=== PATIENT | female | born 1965 | race Caucasian/White ===

== ENCOUNTER → 2017-10-29 18:31 | Outpatient (CLI) | payer OTHER, SELFPAY ==
[2017-11-03 13:49] LABS: HPV APTIMA, High Risk Negative (Negative)
== END ==
PROVIDERS: Visit Provider Obstetrics & Gynecology
DX: Z12.4 Encounter for screening for malignant neoplasm of cervix (principal)
CPT/HCPCS: 88175; G0145

== ENCOUNTER → 2018-01-14 06:57 | Outpatient (CLI) | payer OTHER, SELFPAY ==
--- NOTE | 2018-01-14 07:02 | BI_ITS ---
MAMMOGRAPHY - BILATERAL SCREENING REASON FOR EXAM: Female, 52 years old. Routine annual screening examination. PERTINENT HISTORY: Non-contributory. TECHNIQUE: Digital bilateral breast derek (3D mammographic acquisition) in the CC and MLO projections. 2-D mediolateral oblique (MLO) and craniocaudad (CC) views of both breasts were obtained. CAD: Full Field Digital Mammography with Computer Added Detection was performed. COMPARISON: Comparison is made with prior study dated January 07, 2017 and November 29, 2015. FINDINGS: Breast Composition: There are scattered areas of fibroglandular density. There are no dominant masses or suspicious calcifications. No other significant abnormalities are identified. There has been no significant change since the prior study. BI/SCREENING MAMM (CAD), BILAT IMPRESSION: Stable bilateral screening mammogram. Yearly follow-up mammogram recommended. (A) ASSESSMENT CATEGORY: BIRADS Category 1: Negative. A letter regarding these results will be sent to the patient by the facility within 30 days. Approximately 10% of breast cancers are not detected by mammography. A normal mammogram should not delay biopsy of a clinically suspicious abnormality. [id number] Electronically Signed: Luis E Wilson MD at 8:55 EDT Tel [phone], Service support ,
== END ==
PROVIDERS: Family Provider Family Medicine; PCP Family Medicine; Visit Provider Obstetrics & Gynecology
DX: Z12.31 Encounter for screening mammogram for malignant neoplasm of breast (principal)
CPT/HCPCS: 77063; 77067

== ENCOUNTER → 2018-11-09 17:46 | Outpatient (CLI) | payer OTHER, SELFPAY ==
[2017-08-25 10:58] VITALS: BMI 23.6
[2018-11-15 14:48] LABS: HPV APTIMA, High Risk Negative (Negative)
== END ==
PROVIDERS: Family Provider Family Medicine; PCP Family Medicine; Referring Provider Obstetrics & Gynecology; Visit Provider Obstetrics & Gynecology
DX: Z12.4 Encounter for screening for malignant neoplasm of cervix (principal)
CPT/HCPCS: 88175; G0145

== ENCOUNTER → 2018-12-16 16:36 | Outpatient (CLI) | payer OTHER, SELFPAY ==
[2017-08-25 10:58] VITALS: BMI 23.6
[2018-12-16 17:24] LABS: Absolute Lymphocyte Count 1.46 X10^3/ul (0.83-4.51); Basophil# 0.04 X10^3/uL; Basophil% 0.9 % (0-1); Eosinophil# 0.12 X10^3/uL; Eosinophils% 2.8 % (0-5); Hematocrit 38.7 % (37-47); Hemoglobin 12.4 g/dl (12.0-15.0); Lymphocyte # 1.46 X10^3/ul (4.0); Lymphocyte % 34.2 % (19-41); Mean Corpuscular Volume 90.6 fL (81-99); Mean Platelet Vol. 9.3 fl (6.2-12.0); Monocyte# 0.62 X10^3/uL; Monocyte% 14.5 % (0-10); Neutrophil # 2.03 X10^3/uL (2.7-7.7); Neutrophil % 47.6 % (47-70); Platelet Count 348 K/mm3 (150-450); RBC Distribution Width CV 12.3 % (11.6-14.6); RBC Distribution Width SD 40.3 fl (35.1-43.9); Red Blood Count 4.27 M/mm3 (4.2-5.4); White Blood Count 4.3 K/mm3 (4.4-11.0)
[2018-12-16 17:27] LABS: POSITIVE COUNT NO; POSITIVE DIFFERENTIAL NO; POSITIVE MORPHOLOGY NO
[2018-12-16 18:25] LABS: ALB/GLOB Ratio 1.5 RATIO (0.9-2.4); AST(SGOT) 17 U/L (15-37); Alanine Aminotransfer ALT/SGPT 19 U/L (13-56); Albumin, Serum 4.2 g/dL (3.2-5.0); Alkaline Phosphatase 66 U/L (45-117); Anion Gap 4 (5-15); BUN 16 mg/dL (7-18); BUN/Creat Ratio 26.2 RATIO (10-20); Calcium,Total 8.8 mg/dL (8.5-10.1); Chloride 103 mmol/L (98-107); Creatinine, Serum 0.61 mg/dL (0.55-1.02); EST Glomerular Filtration Rate 108 mL/min (>60); Est Glom Filt Rate - Afr Amer 130 mL/min (>60); Globulin 2.8 g/dL (2.2-4.2); Glucose 81 mg/dL (74-106); Potassium 4.2 mmol/L (3.5-5.1); Sodium Level 138 mmol/L (136-145); Thyroid Stim Hormone (TSH) 2.31 uIU/mL (0.358-3.74)
== END ==
PROVIDERS: Family Provider Family Medicine; PCP Family Medicine; Referring Provider Family Medicine; Visit Provider Family Medicine
DX: F32.9 Major depressive disorder, single episode, unspecified (principal)
CPT/HCPCS: 36415; 80053; 84443; 85025

== ENCOUNTER → 2019-01-16 07:15 | Outpatient (CLI) | payer OTHER, SELFPAY ==
--- NOTE | 2019-01-16 07:17 | BI_ITS ---
MAMMOGRAPHY - BILATERAL SCREENING REASON FOR EXAM: Female, 53 years old. Routine annual screening examination. PERTINENT HISTORY: Non-contributory. TECHNIQUE: Digital bilateral breast derek (3D mammographic acquisition) in the CC and MLO projections. 2-D mediolateral oblique (MLO) and craniocaudad (CC) views of both breasts were obtained. CAD: Full Field Digital Mammography with Computer Added Detection was performed. COMPARISON: Comparison is made with prior study dated January 14, 2018 and January 07, 2017. FINDINGS: Breast Composition: The breasts are heterogeneously dense, which may obscure small masses. There are no dominant masses or suspicious calcifications. No other significant abnormalities are identified. There has been no significant change since the prior study. BI/SCREENING MAMM (CAD), BILAT IMPRESSION: Stable bilateral screening mammogram. Yearly follow-up mammogram recommended. (A) ASSESSMENT CATEGORY: BIRADS Category 1: Negative. A letter regarding these results will be sent to the patient by the facility within 30 days. Approximately 10% of breast cancers are not detected by mammography. A normal mammogram should not delay biopsy of a clinically suspicious abnormality. [id number] Electronically Signed: Luis E Wilson, at 9:01 EDT , Service support ,
== END ==
PROVIDERS: Family Provider Family Medicine; PCP Family Medicine; Referring Provider Obstetrics & Gynecology; Visit Provider Obstetrics & Gynecology
DX: Z12.31 Encounter for screening mammogram for malignant neoplasm of breast (principal)
CPT/HCPCS: 77063; 77067

== ENCOUNTER → 2019-05-28 14:08 | Outpatient (CLI) | payer OTHER, SELFPAY ==
[2019-05-28 10:55] VITALS: BMI 23.6
== END ==
PROVIDERS: Family Provider Family Medicine; PCP Family Medicine; Visit Provider Physician Assistant Surgical
DX: J02.9 Acute pharyngitis, unspecified (principal)
CPT/HCPCS: 87070

== ENCOUNTER 2019-10-27 06:00 | Day surgery (SDC) | payer OTHER, SELFPAY ==
[2019-05-28 10:55] VITALS: BMI 23.6
[2019-10-27] VITALS (12 sets, daily range): BP systolic 87–128; BP diastolic 53–93; PULSE 62–112; RESP 14–16; TEMP 36.4–37; O2SAT 92–100; BMI 21.7
--- NOTE | 2019-10-27 06:14 | PCM.HP.STD ---
Problem List (1) Screening for intestinal cancer Status: Acute History of Present Illness Date of Admission: 10/27/19 The patient is a 54 year old F who presents for screening colonoscopy today. She has had a previous colonoscopy but remotely when she was in her 20s. She denies bright red blood per rectum or melena. No abdominal pain. No weight loss. She otherwise enjoys good health. No family history of colon cancer. Past Medical History Medical History: Medical History (Last Reviewed 05/28/19 @ 10:55 by Zayra Lee) SVT (supraventricular tachycardia) I47.1 Allergies No Known Allergies Allergy (Verified 10/23/19 10:13) Home Medications: Ambulatory Orders Medication Instructions Recorded Multivitamin [Daily Multiple 1 ea PO DAILY 10/23/19 Vitamin] Smoking Status: Never smoker Tobacco Use: Non-smoker Review of Systems Constitutional: Denies: Anorexia Cardiovascular: Denies: Chest Pain Respiratory: Denies: Cough Gastrointestinal: Denies: Abdominal Pain, Melena Endocrine: Denies: Change in Body Habitus VTE Information - Inpt Only VTE Present on Admission: No Patient Problems: Active and Suspected Problems (Last Reviewed 05/28/19 @ 10:55 by Zayra Lee) Screening for intestinal cancer (Acute) - Physical Exam Vitals/I&O's: Body Mass Index (BMI) 23.6 General: Alert, Oriented x3, Cooperative, No apparent distress HEENT: Atraumatic Oral: Moist Mucosa Neck: Supple Lungs: Clear to auscultation, Normal air movement Cardiovascular: Regular rate, Regular Rhythm Abdomen: Bowel Sounds Present, Soft, Non Tender Extremities: No Calf Tenderness Assessment/Plan All Active Problems (Last Reviewed 05/28/19 @ 10:55 by Zayra Lee) Screening for intestinal cancer (Acute) Bronchitis (Acute) URI (upper respiratory infection) (Acute) I recommended the patient a screening colonoscopy with possible biopsy or polypectomy is indicated. She is aware of the technique, benefit, risks, alternatives. She has had an opportunity to ask and have questions answered. She presents via our open access program today. We will proceed as noted. French Porter M.D., F.A.C.S.
[2019-10-27] MEDS: Lactated Ringers 1,000 ML 100 ML IV ×2 (06:36→07:58)
--- NOTE | 2019-10-27 07:17 | OP.COLON_ITS ---
Patient Name: Anneliese Delcid Procedure Date: 10/27/2019 6:50 AM Date of : 1965 Age: 54 Procedure: Colonoscopy Indications: Screening for colorectal malignant neoplasm Providers: French Porter MD Referring MD: French Porter MD Medicines: Midazolam 4.5 mg IV, Meperidine 100 mg IV, Diphenhydramine 12.5 mg IV Patient Profile: Last Colonoscopy: more than 10 years ago. Complications: No immediate complications. Procedure: Pre-Anesthesia Assessment: - Prior to the procedure, a History and Physical was performed, and patient medications and allergies were reviewed. The patient's tolerance of previous anesthesia was also reviewed. The risks and benefits of the procedure and the sedation options and risks were discussed with the patient. All questions were answered, and informed consent was obtained. Prior Anticoagulants: The patient has taken no previous anticoagulant or antiplatelet agents. ASA Grade Assessment: I - A normal, healthy patient. After reviewing the risks and benefits, the patient was deemed in satisfactory condition to undergo the procedure. After I obtained informed consent, the scope was passed under direct vision. Throughout the procedure, the patient's blood pressure, pulse, and oxygen saturations were monitored continuously. The pediatric colonoscope was introduced through the anus and advanced to the cecum, identified by appendiceal orifice and ileocecal valve. The colonoscopy was somewhat difficult due to a tortuous colon. Successful completion of the procedure was aided by increasing the dose of sedation medication. The patient tolerated the procedure well. The quality of the bowel preparation was good. The ileocecal valve and the appendiceal orifice were photographed. Moderate Sedation: Moderate (conscious) sedation was personally administered by the endoscopist. The following parameters were monitored: oxygen saturation, heart rate, blood pressure, and response to care. Total physician intraservice time was 15 minutes. Scope In: 6:58:39 AM Scope Withdrawal Time 0 hours 6 minutes 21 seconds Scope Out: 7:12:43 AM Total Procedure Duration Time 0 hours 14 minutes 4 seconds Findings: The digital rectal exam findings include non-thrombosed internal hemorrhoids and internal hemorrhoids that prolapse with straining, but spontaneously regress to the resting position (Grade II). The colon (entire examined portion) was moderately tortuous. Advancing the scope required changing the patient to a supine position and using manual pressure. The exam was otherwise without abnormality. Impression: - Non-thrombosed internal hemorrhoids and internal hemorrhoids that prolapse with straining, but spontaneously regress to the resting position (Grade II) found on digital rectal exam. - Tortuous colon. - The examination was otherwise normal. - No specimens collected. Recommendation: - Discharge patient to home. - Resume previous diet. - Continue present medications. - Await pathology results. - Repeat colonoscopy in 10 years for screening purposes. Procedure Code(s): --- Professional --- 62774, Colonoscopy, flexible; diagnostic, including collection of specimen(s) by brushing or washing, when performed (separate procedure) 33395, 59, Moderate sedation services provided by the same physician or other qualified health resident care director performing the diagnostic or therapeutic service that the sedation supports, requiring the presence of an independent trained observer to assist in the monitoring of the patient's level of consciousness and physiological status; initial 15 minutes of intraservice time, patient age 5 years or older Diagnosis Code(s): --- Professional --- Z12.11, Encounter for screening for malignant neoplasm of colon K64.1, Second degree hemorrhoids Q43.8, Other specified congenital malformations of intestine CPT copyright 2017 [employer]. All rights reserved. The codes documented in this report are preliminary and upon medical records coder review may be revised to meet current compliance requirements. French Porter MD 10/27/2019 7:16:53 AM This report has been signed electronically. Number of Addenda: 0 Note Initiated On: 10/27/2019 6:50 AM
--- NOTE | 2019-10-27 07:17 | OP.CCLET_ITS ---
10/27/2019 Andreina [address]ino [address] [place] [address] Re : Colonoscopy procedure for Anneliese Delcid Dear Dr. Trevino This procedure was performed on Sunday, October 27, 2019. My impressions and recommendations are as follows: Impressions : - Non-thrombosed internal hemorrhoids and internal hemorrhoids that prolapse with straining, but spontaneously regress to the resting position (Grade II) found on digital rectal exam. - Tortuous colon. - The examination was otherwise normal. - No specimens collected. Recommendations : - Discharge patient to home. - Resume previous diet. - Continue present medications. - Await pathology results. - Repeat colonoscopy in 10 years for screening purposes. My findings are described in the full procedure note, which is enclosed. If I can be of further assistance, please feel free to contact me at Doctor phone number(s): Work: . Sincerely, French Porter MD 10/27/2019 7:16:53 AM This report has been signed electronically.
== END 2019-10-27 09:05 | disposition home or self-care (01) ==
LOC: EN 06:01 → AC 06:06
PROVIDERS: PCP Family Medicine; Referring Provider Surgery; Visit Provider Surgery
PROC: 0DJD8ZZ Inspection of Lower Intestinal Tract, Via Natural or Artificial Opening Endoscopic (ICD-10-PCS; CPT 45378; principal; 2019-10-27 06:55)
DX: Z12.11 Encounter for screening for malignant neoplasm of colon (principal); K64.8 Other hemorrhoids; K64.1 Second degree hemorrhoids; Q43.8 Other specified congenital malformations of intestine
CPT/HCPCS: 45378; 99152; 99153; J7120

== ENCOUNTER → 2020-03-08 15:58 | Outpatient (CLI) | payer OTHER, SELFPAY ==
[2019-10-27 06:26] VITALS: BMI 21.7
[2020-03-14 01:51] LABS: HPV Reflexed? NOT INDICATED
== END ==
PROVIDERS: PCP Family Medicine; Visit Provider Obstetrics & Gynecology
DX: Z12.4 Encounter for screening for malignant neoplasm of cervix (principal)
CPT/HCPCS: 88175; G0145

== ENCOUNTER → 2020-03-28 07:00 | Outpatient (CLI) | payer OTHER, SELFPAY ==
[2019-10-27 06:26] VITALS: BMI 21.7
--- NOTE | 2020-03-28 07:03 | BI_ITS ---
MAMMOGRAPHY - BILATERAL SCREENING REASON FOR EXAM: Female, 54 years old. Routine annual screening examination. PERTINENT HISTORY: Non-contributory. TECHNIQUE: Digital bilateral breast ravinder (3D mammographic acquisition) in the CC and MLO projections. 2-D mediolateral oblique (MLO) and craniocaudad (CC) views of both breasts were obtained. CAD: Full Field Digital Mammography with Computer Added Detection was performed. COMPARISON: Comparison is made with prior study dated 01/16/2019 and 01/14/2018. FINDINGS: Breast Composition: The breasts are heterogeneously dense, which may obscure small masses. There are no dominant masses or suspicious calcifications. Stable small benign appearing left axillary lymph nodes. No other significant abnormalities are identified. There has been no significant change since the prior study. BI/SCREEN MAMM (CAD) W/RAVINDER BILAT IMPRESSION: Stable bilateral screening mammogram. Yearly follow-up mammogram recommended. (A) ASSESSMENT CATEGORY: BIRADS Category 2: Benign. A letter regarding these results will be sent to the patient by the facility within 30 days. Approximately 10% of breast cancers are not detected by mammography. A normal mammogram should not delay biopsy of a clinically suspicious abnormality. [id number] Electronically Signed: Luis E Wilson, at 8:34 EDT , Service support ,
== END ==
PROVIDERS: PCP Family Medicine; Referring Provider Obstetrics & Gynecology; Visit Provider Obstetrics & Gynecology
DX: Z12.31 Encounter for screening mammogram for malignant neoplasm of breast (principal)
CPT/HCPCS: 77063; 77067

== ENCOUNTER 2020-09-19 06:58 | Outpatient (RCR) | payer BC, SELFPAY ==
[2019-10-27 06:26] VITALS: BMI 21.7
--- NOTE | 2020-09-19 12:55 | HP.PTEVAL_ITS ---
Patient's Visit Information HEATHER HERNANDEZ is a 55 year old F referred to Physical Therapy by Dr. Andreina Trevino MD with a diagnosis of R forearm pain. Date of Evaluation: 09/19/20 Physical Therapist: Ad Childress DPT - Visit Plan Frequency: 2x /Week Duration: 4 Weeks Plan: Start with DFM to lateral epicondyle, stretching of wrist extensors, eccentric wrist extension. I also recommended to her that she get a counterforce brace to use at work and with recreational activities. - Subjective Pt. is here today for her initial evaluation with diagnosis of R forearm pain. Pt. 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 She reports no popping, but since then she has been pretty sore. Pt. denies N/T. Increased symptoms: gripping, lifting, carrying objects, wrist extension and opening jars. Decreased symptoms: ice/heat, biofreeze, stretching. She had triale stretching, but appears she was stretching her medial wrist flexors, but her pain is at her wrist extensors. 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 She is able to sleep, but depending on the day she may wake up at night to pain. Pt. has not had any imaging at this point in time. Pt. is hopeful to reduce symptoms in order to get back to all work and recreational activities without limitations. - Pain R wrist extensor origins Pain Intensity (Out of 10): 4 Pain Intensity Range: 2, 8 Comment: pain at lateral epicondyle - Objective POSTURE: Pt. has descent posture of shoulders and elbow, no abnormalities noted. PALPATION: pt. is very tender at lateral epicondyle and along wrist/finger extensor muscle groups. NEURO: normal sensation and normal DTR of BUEs. No signs of carpal or cubital tunnel. ROM: Pt. has good ROM of R elbow without increase in symptoms. tightness noted throughout R wrist extensors, mild pain noted as well. MMT: Pt. has increased pain with wrist extension and finger extension, worst with 3rd finger. Pt. has normal frit mixer and burner noted bilaterally. - Special Tests R Elbow Flexion Test - Cubital Tunnel: Negative R Elbow Tinels - Ulnar n.: Negative R Elbow Valgus Stress Test - MCL Instability: Negative R Elbow Varus Stress Stest - MCL Instability: Negative R Elbow Lat Epiconylitis - as named: Positive Comments: + florina and cojudi test on R elbow, postive for lateral epicondylitis - Goals Goal 1:: LTG: Pt. to be I with HEP. Goal Time Frame: 4-6 Weeks Goal 2:: LTG: pt. to be able to open/close jars without increase in symptoms. Goal Time Frame: 4-6 Weeks Goal 3:: STG: Pt. to sleep throughout the night without increase in symptoms. Goal Time Frame: 2-4 Weeks Goal 4:: LTG: Pt. to have increased Wrist/finger extensor strength to full without increase in symptoms. Goal Time Frame: 4-6 Weeks Goal 5:: LTG: pt. to have decreased tenderness to palpation of R lateral epicondyle. Goal Time Frame: 4-6 Weeks - Rehabilitation Potential Physical Therapy Diagnosis: Pt. has signs and symptoms consistent with R lateral epicondylitis. Pt. had + mill and conzen's test, pain at lateral epicondyle and has pain with griping and wrist extension. She would benefit from PT to work on her hypomobility, tightness, pain and work on tissue remodeling. Rehabilitation Potential: Excellent - Anticipated Interventions Patient/Client Instruction: Educate patient on: Condition, Plan of Care, Risk Factors, Benefits of Fitness Program For the Purpose of:: To facilitate caregiver knowledge, To improve self management, To prevent re-injury, To improve ability to perform tasks related to life management, To improve tolerance to ADL's Therapeutic Exercise to Include: Strength training, Power training, Postural training, Flexibilty training, Passive ROM, Active ROM, Scapular Strength/Stabilization For the Purpose of:: To decrease pain, To decrease swelling/inflammation, To increase ROM, To improve nutrient delivery to tissue, To increase oxygenation perfusion, To improve muscle performance and motor function, To improve health of tissue, To decrease soft tissue restriction, To increase flexibility/ROM Manual Therapy Techniques to Include: Mobilization Comment: deep friction massage For the Purpose of:: To decrease pain, To decrease swelling/inflammation, To increase ROM, To improve nutrient delivery to tissue Ultrasound (thermal/non thermal): Yes For the Purpose of:: To decrease pain, To decrease swelling/inflammation, To increase ROM, To improve nutrient delivery to tissue Thank you for the opportunity to evaluate your patient. For Medicare and Medicare HMO plans, please review the plan of care and approve it. It will need to be FAXED BACK to us at [phone] for Medicare purposes. For Medicare only, by signing this I certify the plan of care. Please let me know if there are questions or concerns regarding this plan of care. Physician Signature: Date:
--- NOTE | 2021-02-05 12:21 | HP.PTDCNRP_ITS ---
HEATHER HERNANDEZ was seen in my office for initial evaluation on 09/19/20. The following Plan of Care was established for this patient: Initial Frequency: 2x /Week Initial Duration: 4 Weeks Patient/Client Instruction: Educate patient on: Condition, Plan of Care, Risk Factors, Benefits of Fitness Program For the Purpose of:: To facilitate caregiver knowledge, To improve self management, To prevent re-injury, To improve ability to perform tasks related to life management, To improve tolerance to ADL's Therapeutic Exercise to Include: Strength training, Power training, Postural training, Flexibilty training, Passive ROM, Active ROM, Scapular Strength/St abilization For the Purpose of:: To decrease pain, To decrease swelling/inflammation, To increase ROM, To improve nutrient delivery to tissue, To increase oxygenation perfusion, To improve muscle performance and motor function, To improve health of tissue, To decrease soft tissue restriction, To increase flexibility/ROM Manual Therapy Techniques to Include: Mobilization Comment: deep friction massage For the Purpose of:: To decrease pain, To decrease swelling/inflammation, To increase ROM, To improve nutrient delivery to tissue Ultrasound (thermal/non thermal): Yes For the Purpose of:: To decrease pain, To decrease swelling/inflammation, To i ncrease ROM, To improve nutrient delivery to tissue This patient was last seen in our office 09/19/20. Pertinent comments regarding their Physical therapy will appear below: Pt. was seen for her initial evaluation with diagnosis of R forearm pain in PT. She has not been seen since. Pt. will be DC from PT at this point in time. At this point I will be discontinuing this patient from physical therapy. I would be happy to see this patient again in the future if found appropriate by the physician. Thank you! Ad Childress, SARAHT
== END 2020-09-19 19:00 | disposition home or self-care (01) ==
LOC: PT 06:58
PROVIDERS: PCP Family Medicine; Referring Provider Family Medicine; Visit Provider Family Medicine
DX: S56.911D Strain of unspecified muscles, fascia and tendons at forearm level, right arm, subsequent encounter (principal)
CPT/HCPCS: 97035; 97110; 97161

== ENCOUNTER → 2021-04-17 16:35 | Outpatient (CLI) | payer BC, SELFPAY ==
[2021-04-23 18:32] LABS: HPV APTIMA, High Risk Negative (Negative); HPV Reflexed? YES, CHARGE PATIENT
== END ==
PROVIDERS: PCP Family Medicine; Visit Provider Obstetrics & Gynecology
DX: Z12.4 Encounter for screening for malignant neoplasm of cervix (principal)
CPT/HCPCS: 87624; 88175; G0145

== ENCOUNTER → 2021-04-29 08:51 | Outpatient (CLI) | payer BC, SELFPAY ==
--- NOTE | 2021-04-29 08:54 | BI_ITS ---
MAMMOGRAPHY - BILATERAL DIAGNOSTIC REASON FOR EXAM: Female, 55 years old. LUMP PERTINENT HISTORY: Non-contributory. TECHNIQUE: Digital examination. Mediolateral oblique (MLO) and craniocaudad (CC) views of both breasts were obtained. CAD: CAD was performed on this study. COMPARISON: 03/28/2020 FINDINGS: Breast Composition: There are scattered areas of fibroglandular density. There are no dominant masses or suspicious calcifications. No other significant abnormalities are identified. BI/DIAG MAMM W/CAD, BILAT IMPRESSION: Stable bilateral diagnostic mammogram. ASSESSMENT CATEGORY: BIRADS Category 1: Negative. A letter regarding these results will be sent to the patient by the facility within 30 days. FOLLOW UP RECOMMENDATION: Yearly follow up mammogram recommended. (A) Approximately 10% of breast cancers are not detected by mammography. A normal mammogram should not delay biopsy of a clinically suspicious abnormality. Electronically Signed: Frank Suarez MD at 9:29 EDT Tel , Service support ,
== END ==
PROVIDERS: PCP Family Medicine; Referring Provider Obstetrics & Gynecology; Visit Provider Obstetrics & Gynecology
DX: N63.25 Unspecified lump in the left breast, overlapping quadrants (principal)
CPT/HCPCS: 77062; 77066; G0279

== ENCOUNTER → 2021-05-14 14:49 | Outpatient (CLI) | payer BC, SELFPAY ==
--- NOTE | 2021-05-14 14:50 | US_ITS ---
STUDY: ULTRASOUND BREAST - LEFT REASON FOR EXAM: Female, 55 years old. Palpable lump left breast. TECHNIQUE: Axial and longitudinal images of the LEFT breast were performed with a high resolution ultrasound transducer. # OF IMAGES: 17 COMPARISON: Comparison is made with prior mammogram dated 04/29/2021. FINDINGS: LEFT Breast: The lateral aspect of the left breast was examined by ultrasound. No sonographic abnormality is seen. US/Breast Limited Unilateral IMPRESSION: No sonographic abnormality is seen. ASSESSMENT CATEGORY: BIRADS Category 1: Negative. A letter regarding these results will be sent to the patient by the facility within 30 days. Electronically Signed: Luis E Wlison MD at 15:53 EDT , Service support ,
== END ==
PROVIDERS: PCP Family Medicine; Referring Provider Surgery; Visit Provider Surgery
DX: N63.0 Unspecified lump in unspecified breast (principal)
CPT/HCPCS: 76642

== ENCOUNTER 2021-07-02 11:45 | Emergency (ER) | payer BC, SELFPAY ==
[2021-07-02 11:46] VITALS: BP 143/80; PULSE 95; RESP 17; TEMP 36.4; O2SAT 100; BMI 22.1
--- NOTE | 2021-07-02 11:49 | EKG12_ITS ---
Test Reason : CP Blood Pressure : / mmHG Vent. Rate : 103 BPM Atrial Rate : 103 BPM P-R Int : 182 ms QRS Dur : 094 ms QT Int : 364 ms P-R-T Axes : 080 081 052 degrees QTc Int : 476 ms Sinus tachycardia Biatrial enlargement Abnormal ECG Confirmed by DEION COOK, JESSICA ([id number]), desk editor DERIAN SERRATO ([id number]) on 07/07/2021 9:59:55 AM Referred By: SANTOS Confirmed By:AZIZA ALBARRAN MD
[2021-07-02 11:51] VITALS: O2SAT 100
--- NOTE | 2021-07-02 11:54 | RAD_ITS ---
STUDY: X-RAY CHEST REASON FOR EXAM: Female, 56 years old. Chest pain TECHNIQUE: Single AP portable view of the chest. COMPARISON: None. FINDINGS: EKG electrodes are seen. The lungs are clear and expanded. Calcified granulomas. There is no demonstrated pleural abnormality. Normal size heart. Normal mediastinum and geoff. Normal visualized pulmonary arteries. Normal visualized aortic arch and descending thoracic aorta. Normal visualized thoracic spine. Normal visualized ribs, clavicles, and shoulders. There is no demonstrated abnormality of the visualized soft tissue structures of the upper abdomen. RAD/Chest 1 View (Portable) IMPRESSION: Normal x-ray examination of the chest. Electronically Signed: Luis E Wilson MD at 12:22 EDT , Service support ,
[2021-07-02] MEDS: Aspirin 81 MG TAB.CHEW 324 MG PO (11:55)
--- NOTE | 2021-07-02 12:02 | ED.VIS.CHEST ---
HPI History of Present Illness Chief Complaint: Chest Pain Informant: patient Onset/Context/Timing Onset: Today Activity at onset: gradual Timing: Continuous Quality: Positive for Heaviness Location: Substernal Current Severity: Mild Maximum Severity: Mild Worsened By: Nothing Relieved By: Nothing Associated Symptoms: Positive for Nausea; Negative for Vomiting, Diaphoresis, Dyspnea, Cough, Fever, Lightheadedness and Acid Reflux Narrative Narrative: 56-year-old female history of a prior SVT with an ablation. She had cardiac catheterization cardiac work-up at that time in 2009. States that last couple days she has not felt completely normal. Said today while seated at work she had a midsternal chest discomfort which she described as heaviness. It did not radiate to her neck back or jaw. She states it felt like a twisting. She denies any back pain. She denies any recent exertional chest pain or exertional dyspnea. Prior Similar Symptoms: No Recent Illness/Hospitalization: No CVD Risk Factors: Negative for Hypertension, Diabetes, Hypercholesterolemia, Family History 1' </=55 and Smoking PE Risk Factors: Negative for Recent Travel/Surgery, Recent Immobilization, Prior DVT or PE, Cancer and OCP + Smoking + >/=35 TAD Risk Factors: Negative for Marfan's Syndrome and Hypertension [facility] Medical History Palpable mass of breast SVT (supraventricular tachycardia) Home Medications multivitamin 1 ea PO DAILY 10/23/19 [History Last Taken Unknown] Allergy/AdvReac Type Severity Reaction Status Date / Time No Known Allergies Allergy Verified 07/02/21 11:51 Family History Other Arthritis Surgical History History of cardiac radiofrequency ablation Social History Smoking Status: Never smoker alcohol intake: current alcohol intake frequency: holidays/special occasions only Alcohol type: wine what type of physical activity do you participate in: walking frequency: 1-2 times per week duration: 15-30 minutes/day ROS ROS ED ROS Narrative Denies any recent illness. Review of Systems ROS Unobtainable: Denies due to encephalopathy Constitutional Constitutional ED: Denies fever(s) Eyes Eyes: Denies none ENT ENT ED: Denies ear pain Cardiovascular Cardiovascular: Reports as per HPI and chest pain; Denies palpitations or racing heartbeat Respiratory/Chest Respiratory/Chest: Denies cough, dyspnea or sputum Gastrointestinal Gastrointestinal: Reports nausea; Denies abdominal pain, diarrhea or vomiting Genitourinary Genitourinary ED: Denies dysuria Musculoskeletal Musculoskeletal: Denies myalgias Integumentary Denies rash Neurologic Neurologic: Denies headache(s) Psychiatric Psychiatric: Denies depression Endocrine Endocrinology: Denies polyuria Hematologic/Lymphatic Hematologic/Lymphatic: Denies easy bruising Allergic/Immunologic Allergic/Immunologic ED: Denies urticaria EXAM Physical Exam Narrative Exam Narrative: Lower extrema no acute distress vital signs stable afebrile. Pulse ox 100% on room air no signs hypoxia. H EENT exam unremarkable. Neck nontender no JVD. Lungs clear to auscultation bilaterally. Heart regular rate and rhythm no murmur. Chest were nontender. Abdomen soft nontender. Normal bowel sounds no peritoneal signs. Moving all 4 extremities. Calves are nontender without edema or cords. Equal symmetrical radial pulses. Const Vital Signs: 07/02/21 11:46 07/02/21 11:48 07/02/21 11:51 Temperature 97.6 F L Temperature Source Temporal Pulse Rate 95 Respiratory Rate 17 Respiratory Effort Normal Non-Labored Blood Pressure 143/80 H Blood Pressure Mean 101 Pulse Ox 100 100 Oxygen Delivery Method Room Air Room Air 07/02/21 13:02 07/02/21 14:21 07/02/21 15:09 Temperature Temperature Source Pulse Rate 82 69 85 Respiratory Rate 18 16 Respiratory Effort Blood Pressure 122/69 H 129/69 H Blood Pressure Mean 86 89 Pulse Ox 100 100 Oxygen Delivery Method Room Air Positive well nourished and well developed; Negative for obese, cachectic, contractures or unkempt General Appearance ED: well developed and NAD; Negative for unkempt, cachectic, contractures or pallor Nutritional Appearance: Negative for cachectic or obese HEENT Reports moist mucous membranes normocephalic and atraumatic; Negative for trauma or tenderness Eyes PERRL and EOMs intact bilaterally Neck no lymphadenopathy, supple and no JVD General: Negative for tenderness Chest Wall inspection of chest normal and palpation of chest normal Resp normal respiratory effort and clear to auscultation bilaterally Effort and Inspection: respiratory distress Auscultation: Negative for rales, rhonchi or wheezes Cardio regular rate, regular rhythm, S1 normal heart sound, S2 normal heart sound and no murmurs Rate: Negative for bradycardia or tachycardic GI normal to inspection, nondistended, normoactive bowel sounds, soft to palpation, non-tender, non-distended and no masses Back/Spine no CVA tenderness and no thoracic nor lumbar tenderness General Back: Negative for CVA tenderness Extremity normal to inspection General Extremety ED: Negative for edema or tenderness General Extremity: Negative for edema Neuro oriented x3 and CN's II-XII intact bilaterally Sensorium / Orientation: awake, alert, oriented to person, oriented to place and oriented to time Motor Exam: strength 5/5 throughout Psych mental status grossly normal Appearance: Negative for unkempt Mood & Affect: Negative for depressed or tearful Skin no rashes or lesions noted and no wounds General Skin Exam: Negative for jaundice or pallor Heart Score History: Moderately Suspicious ECG: Normal Age: >45 - <65 years Risk Factors: No Risk Factors Troponin: </= Normal Limit Score: 2 MDM MDM MDM Narrative Medical decision making narrative: 56-year-old with nonexertional chest pain at rest. Exam normal. EKG unremarkable. Will undergo a cardiac work-up. Cardiac disease is a possibility. Very low suspicion for PE she has no history of PE nor DVT no risk factors. This could also be reflux versus other etiologies. Repeat exam patient is doing well at 2:48 PM. Exam is benign. No change she is clinically doing well. She denies discussed all of her test results. We discussed options. Her heart score is a 1-2. Her exam and work-up is negative. We get a repeat troponin EKG. If those are okay she will be discharged home. The repeat troponin be checked out to the afternoon doctor. I will speak to her primary care physician or the physician covering for outpatient follow-up. Repeat EKG at 1458 shows a normal sinus rhythm rate of 78 no acute signs of AZ nor ischemia. Unchanged. I did speak to the patient's primary care physician who will see her in follow-up. Dr. Andreina Dave. Second troponin returned was only 5. Second EKG was also unremarkable and unchanged. She is doing well at 3:28 PM will be discharged home. Lab Data Attestation: I reviewed the patient's lab results. Lab results narrative: CBC normal white count of 5 hemoglobin 13. Electrolytes potassium 3.2 gap of 5 normal BUN and creatinine. High-sensitivity troponin IV. Chest x-ray normal. Normal cardiac silhouette and mediastinum no infiltrates. Interpreted by myself and the radiologist. Labs: Laboratory Results - last 24 hr 07/02/21 07/02/21 07/02/21 11:50 11:50 14:53 WBC 5.7 RBC 4.67 Hgb 13.6 Hct 42.5 MCV 91.0 MCH 29.1 MCHC 32.0 RDW Std Deviation 39.8 RDW Coeff of Teja 11.9 Plt Count 414 MPV 9.0 Immature Gran % (Auto) 0.200 Neut % (Auto) 52.3 Lymph % (Auto) 31.6 [place] % (Auto) 11.2 H Eos % (Auto) 3.3 Baso % (Auto) 1.4 H Absolute Neuts (auto) 3.0 Absolute Lymphs (auto) 1.81 Nucleated RBC % 0 Sodium 137 Potassium 3.2 L Chloride 103 Carbon Dioxide 29.0 Anion Gap 5 BUN 10 Creatinine 0.73 Estim Creat Clear Calc 69.49 Est GFR (MDRD) Af Amer 105 Est GFR (MDRD) Non-Af 87 BUN/Creatinine Ratio 13.7 Glucose 100 Calcium 9.4 Troponin I High Sens 4 5 Radiography Chest X-Ray - ED: 1 View, Read by ED Physician, Heart, Lungs, Mediastinum, Bony Structures and No Acute Disease Diagnostic Testing: Clinical Impression(s) from Imaging Studies Chest X-Ray 07/02/21 11:54 IMPRESSION: Normal x-ray examination of the chest. Electronically Signed: Luis E Wilson MD at 12:22 EDT , Service support , Single view portable chest x-ray interpreted by myself and radiologist shows no acute abnormality. Rhythm Strip Rhythm Strip: Sinus Tach Rate: 103 Ectopy: None EKG Initial EKG: Attestation: I personally reviewed and interpreted this EKG as follows: Interpretation: Sinus Rhythm, No Acute Injury Pattern and Sinus Tachycardia Comments: Sinus tachycardia rate of 103. No acute signs of [place] or ischemia. Prior EKG tracings: not available for review Discharge Plan Triage Chief Complaint: Chest Pain ED Provider: Aristides Salgado Dx/Rx/DC Orders Clinical Impression: Chest pain Instructions: ED Chest Pain, Uncertain Cause Prescriptions: No Action multivitamin 1 EACH tablet 1 ea PO DAILY RF: 0 Primary Care Provider: Andreina Trevino Referrals: Andreina Trevino MD [Primary Care Provider] - 3-5 Days Activity Restrictions/Additional Instructions: Your test today were unremarkable including 2 EKGs, chest x-ray and lab work. I spoke to your primary care physician Dr. Andreina Trevino she said call her office and follow-up in the next 3 to 5 days. If you have recurrent pain that is significantly worse or you are feeling worse return to the emergency department. Disposition Disposition: Home, Self Care
[2021-07-02 12:07] LABS: Absolute Lymphocyte Count 1.81 X10^3/uL (0.83-4.51); Basophil# 0.08 X10^3/uL; Basophil% 1.4 % (0-1); Eosinophil# 0.19 X10^3/uL; Eosinophils% 3.3 % (0-5); Hematocrit 42.5 % (37-47); Hemoglobin 13.6 g/dL (12.0-15.0); Lymphocyte # 1.81 X10^3/ul (0.83-4.51); Lymphocyte % 31.6 % (19-41); Mean Corpuscular Hgb 29.1 pg (27.0-32.0); Monocyte# 0.64 X10^3/uL; Monocyte% 11.2 % (0-10); NRBC Flagged by Analyzer 0 % (0-5); Neutrophil # 2.99 X10^3/uL (2.7-7.7); Neutrophil % 52.3 % (47-70); Platelet Count 414 K/mm3 (150-450); RBC Distribution Width CV 11.9 % (11.6-14.6); RBC Distribution Width SD 39.8 fl (35.1-43.9); Red Blood Count 4.67 M/mm3 (4.2-5.4); White Blood Count 5.7 K/mm3 (4.4-11.0)
[2021-07-02 12:25] LABS: Anion Gap 5 (5-15); BUN 10 mg/dL (7-18); BUN/Creat Ratio 13.7 RATIO (10-20); Calcium,Total 9.4 mg/dL (8.5-10.1); Chloride 103 mmol/L (98-107); Creatinine, Serum 0.73 mg/dL (0.55-1.02); EST Glomerular Filtration Rate 87 mL/min (>60); Est Glom Filt Rate - Afr Amer 105 mL/min (>60); Estimated Creatinine Clearance 69.49 ml/min; Glucose 100 mg/dL (74-106); Potassium 3.2 mmol/L (3.5-5.1); Sodium Level 137 mmol/L (136-145); Troponin-I HS 4 pg/mL (3.0-54.0)
[2021-07-02 13:02] VITALS: BP 122/69; PULSE 82; RESP 18; O2SAT 100
[2021-07-02 14:21] VITALS: BP 129/69; PULSE 69; O2SAT 100
--- NOTE | 2021-07-02 14:48 | EKG12_ITS ---
Test Reason : REPEAT Blood Pressure : / mmHG Vent. Rate : 078 BPM Atrial Rate : 078 BPM P-R Int : 182 ms QRS Dur : 090 ms QT Int : 382 ms P-R-T Axes : 071 054 033 degrees QTc Int : 435 ms Normal sinus rhythm Normal ECG Confirmed by DEION COOK, JESSICA ([id number]), multimedia editor DERIAN SERRATO ([id number]) on 07/07/2021 10:00:20 A M Referred By: SANTOS Confirmed By:AZIZA ALBARRAN MD
[2021-07-02 15:09] VITALS: PULSE 85; RESP 16
[2021-07-02 15:21] LABS: Troponin-I HS 5 pg/mL (3.0-54.0)
[2021-07-02 15:31] VITALS: PULSE 88; RESP 16
== END 2021-07-02 15:36 | disposition home or self-care (01) ==
PROVIDERS: Emergency Provider Emergency Medicine; PCP Family Medicine
DX: R07.9 Chest pain, unspecified (principal)
CPT/HCPCS: 71045; 80048; 84484; 85025; 93005; 99284; A4216

== ENCOUNTER 2022-06-29 08:34 | Emergency (ER) | payer BC, SELFPAY ==
[2022-06-29 08:35] VITALS: BP 136/72; PULSE 97; RESP 18; TEMP 36; O2SAT 100; BMI 21.7
--- NOTE | 2022-06-29 09:05 | RAD_ITS ---
STUDY: X-RAY - LUMBAR SPINE REASON FOR EXAM: Female, 57 years old. Left sciatica TECHNIQUE: 2 view(s) of the lumbar spine were obtained. COMPARISON: None FINDINGS: There is straightening of the normal lumbar lordosis. There is no substantial scoliosis. There is a normal alignment of the vertebrae. There is endplate spondylosis of the lumbar vertebrae. Normal disc space heights. The soft tissue structures are unremarkable. RAD/Lumbar Spine 2 or 3 Views IMPRESSION: Degenerative changes of the spine, as detailed above. Straightening of the normal lumbar lordosis. Electronically Signed: Luis E Wilson MD at 9:39 EDT ,
--- NOTE | 2022-06-29 09:06 | EDS_ITS ---
HPI History of Present Illness Chief Complaint: Lower Extremity Injury Informant: patient Narrative Narrative: Presents here with family for evaluation of progressive left-sided leg pain. Reports a week ago outside when dog was on the leash, ran she jumped over the leash, she does not fall. She is doing fine Wednesday noticed some discomfort left outer thigh left side. Wednesday she reported using the riding lawnmower did some mulching increasing pain. Symptoms would go down to her lateral lower leg. Symptoms worse with sitting and movement. No history of similar. Called PCP office on Wednesday they were booked. She was told to go to urgent care or ER. Wednesday [facility] she is prescribed a prednisone taper and started on muscle relaxer. Symptoms not improving. Adding ibuprofen 600 mg. We will continue discomfort presents to the ED today. Having difficulty walking. She has access to a walker at home for use. Denies any allergies. Denies any loss of bowel or bladder control. Denies history of similar. Prior similar symptoms: No PFSH PFSH Medical History Palpable mass of breast SVT (supraventricular tachycardia) Home Medications multivitamin 1 ea PO DAILY 10/23/19 [History Last Taken Unknown] ofloxacin 0.3 % eye drops See Rx Instructions ophthalmic (eye) .COMPLEX #5 mL 02/08/22 [Rx Last Taken Unknown] metaxalone 800 mg tablet 800 mg PO TID PRN muscle pain #10 tabs 06/27/22 [Rx Last Taken Unknown] prednisone 10 mg tablet 10 mg PO .COMPLEX #40 tabs 06/27/22 [Rx Last Taken Unknown] diazepam 5 mg tablet 5 mg PO Q8 PRN Muscle Spasm #12 tabs 06/29/22 [Rx Last Taken Unknown] gabapentin 300 mg capsule 300 mg PO QHS #30 caps 06/29/22 [Rx Last Taken Unknown] oxycodone-acetaminophen 5 mg-325 mg tablet (Percocet) 1 tab PO Q6H PRN pain 3 days #12 tabs 06/29/22 [Rx Last Taken Unknown] Allergy/AdvReac Type Severity Reaction Status Date / Time No Known Allergies Allergy Verified 07/02/21 11:51 Family History Other Arthritis Surgical History History of cardiac radiofrequency ablation Social History Smoking Status: Never smoker alcohol intake: current alcohol intake frequency: holidays/special occasions only Alcohol type: wine what type of physical activity do you participate in: walking frequency: 1-2 times per week duration: 15-30 minutes/day ROS ROS ED Constitutional Constitutional ED: Denies chills, fever(s) or sweats Eyes Eyes: Denies change in vision ENT ENT ED: Denies dysphagia or sore throat Cardiovascular Cardiovascular: Denies chest pain, leg edema, palpitations or racing heartbeat Respiratory/Chest Respiratory/Chest: Denies cough, dyspnea or dyspnea on exertion Gastrointestinal Gastrointestinal: Denies abdominal pain, diarrhea, nausea or vomiting Genitourinary Genitourinary ED: Denies dysuria, hematuria or urinary frequency Musculoskeletal Musculoskeletal: Reports extremity pain; Denies back pain or neck pain Integumentary Denies rash or wounds Neurologic Neurologic: Denies headache(s), paresthesias or weakness EXAM Physical Exam Const Vital Signs: 06/29/22 08:35 06/29/22 12:32 Temperature 96.8 F L Temperature Source Temporal Pulse Rate 97 Respiratory Rate 18 18 Blood Pressure 136/72 H Blood Pressure Mean 93 Pulse Ox 100 99 Oxygen Delivery Method Room Air Room Air Positive well nourished and well developed Constitutional Narrative: Uncomfortable, nontoxic General Appearance ED: well developed HEENT Reports moist mucous membranes normocephalic and atraumatic Eyes PERRL, EOMs intact bilaterally and conjunctivae normal General Eye ED: Yes normal appearance of both eyes Neck no lymphadenopathy and supple General: Negative for tenderness Chest Wall Chest: Negative for tenderness Resp normal respiratory effort and normal air movement Effort and Inspection: symmetric chest movement; Negative for respiratory distress Cardio regular rate, regular rhythm and no murmurs Peripheral Pulses: pulses 2+ throughout GI normal to inspection, nondistended, normoactive bowel sounds and non-tender Palpation: Negative for guarding or rebound tenderness present Back/Spine no CVA tenderness and no thoracic nor lumbar tenderness Back/Spine Narrative: No midline tenderness, no paralumbar tenderness. Straight leg test left side elicit discomfort lateral thigh. Is 1+ patellar reflex on the left, 3+ on the right. Extremity normal to inspection General Extremety ED: Negative for edema or tenderness General Extremity: Negative for edema Neuro oriented x3 and no sensory deficits noted Neuro Narrative: Strength left hip flexor 4 out of 5 compared to the right. Dorsi plantar flexors 5 out of 5 symmetric. Neurovascular intact distally. Sensorium / Orientation: awake and alert Skin no rashes or lesions noted and no wounds MDM MDM MDM Narrative Medical decision making narrative: Patient history exam concerns for sciatica however radicular pain symptoms left side more concerning for L5?S1 involvement. She has decreased reflex on the left side more consistent with a peripheral nerve impingement. She has no cauda equina symptoms. Discussed with patient family, no emergent indication for MRI studies at this time. She does have symptoms, I discussed, symptomatic control. Will obtain x-ray lumbar spine to help streamline process of management. Patient be started on gabapentin. She will continue her prescription medica tions and NSAIDs. 2 view x-ray lumbar spine reviewed myself and read by radiology mild degenerative changes noted. Interim was uncomfortable requesting pain medicine she is given IM morphine. There is no improvement. She reports spasms given p.o. Valium. She was monitored much more comfortable. She is able to ambulate with a walker with nursing reporting walking. She will stop her other muscle relaxer will use Valium. She continue her NSAIDs, prednisone. Additional prescription for oxycodone use as needed. She is given follow-up with pain management and her PCP for further outpatient management. All questions were answered. Radiography Diagnostic Testing: Clinical Impression(s) from Imaging Studies Lumbar Spine X-Ray 06/29/22 09:05 IMPRESSION: Degenerative changes of the spine, as detailed above. Straightening of the normal lumbar lordosis. Electronically Signed: Luis E Wilson MD at 9:39 EDT , Discharge Plan Triage Chief Complaint: Lower Extremity Injury ED Provider: Corby Kerr Dx/Rx/DC Orders Clinical Impression: Sciatica of left side, Leg muscle spasm Instructions: ED Sciatica Prescriptions: New oxycodone-acetaminophen [Percocet] 5-325 mg tablet 1 tab PO Q6H PRN (Reason: pain) 3 Days Qty: 12 0RF diazepam [diazepam] 5 mg tablet 5 mg PO Q8 PRN (Reason: Muscle Spasm) Qty: 12 0RF gabapentin 300 mg capsule 300 mg PO QHS Qty: 30 0RF No Action ofloxacin 0.3 % drops See Rx Instructions ophthalmic (eye) .COMPLEX Qty: 5 0RF Rx Instructions: put 1-2 drps into affected eye(s) every 2-4 h x 2 days, then 1-2 drps 4 times/day days 3-7 ophthalmic (eye) prednisone 10 mg tablet 10 mg PO .COMPLEX Qty: 40 0RF Rx Instructions: Take 4 pills for 4 days, 3 pills for 4 days, 2 pills for 4 days, take 1 pill for 4 days metaxalone 800 mg tablet 800 mg PO TID PRN (Reason: muscle pain) Qty: 10 0RF Rx Instructions: 1/2 to 1 pill for pain multivitamin 1 EACH tablet 1 ea PO DAILY Primary Care Provider: Andreina Trevino Referrals: Andreina Trevino MD [Primary Care Provider] - 1 Day Joesph Reddy DO [Non-Staff] - 3-5 Days Activity Restrictions/Additional Instructions: Continue your prednisone. Stop metaxalone. Start Valium as needed. Percocet as needed. Start gabapentin. Concerning nerve impingement L5-S1 left side. Usual walker for stability follow-up with your doctor for therapy follow-up with Dr. Reddy for treatment options. Disposition Disposition: Home, Self Care Discharge Date/Time: 06/29/22 13:15
[2022-06-29] MEDS: Gabapentin 300 MG Capsule PO (10:08)
[2022-06-29] MEDS: Morphine 4 MG/ML Syringe IM (10:09)
[2022-06-29] MEDS: diazePAM 5 MG Tablet PO (11:04)
[2022-06-29 12:32] VITALS: RESP 18; O2SAT 99
== END 2022-06-29 13:15 | disposition home or self-care (01) ==
PROVIDERS: Emergency Provider Emergency Medicine; PCP Family Medicine; Visit Provider Emergency Medicine
DX: M54.32 Sciatica, left side (principal); M62.838 Other muscle spasm
CPT/HCPCS: 72100; 96372; 99283

== ENCOUNTER → 2022-07-01 | Outpatient (CLI) | payer BC, SELFPAY ==
--- NOTE | 2022-07-01 17:01 | RAD_ITS ---
STUDY: X-RAY - PELVIS AND LEFT HIP REASON FOR EXAM: Female, 57 years old. Left-sided pain. TECHNIQUE: 3 views of the pelvis and hip. COMPARISON: None. FINDINGS: There is a non-specific bowel gas pattern. Normal visualized soft tissue structures. Normal bilateral iliac wings, sacroiliac joints and visualized sacrum. Normal bilateral superior and inferior pubic rami. Normal pubic symphysis. Normal bilateral ischial tuberosities. Normal visualized femoral head. Normal acetabulum. Normal hip joint. RAD/HIP, UNI W/ Pelvis 2-3 Views IMPRESSION: Normal x-ray examination of the pelvis and hip. Electronically Signed: Scott Valenzuela, at 10:13 EDT ,
--- NOTE | 2022-07-01 17:01 | RAD_ITS ---
STUDY: X-RAY - LEFT TIBIA AND FIBULA REASON FOR EXAM: Female, 57 years old. Left leg pain. TECHNIQUE: 2 view(s) of the tibia and fibula were obtained. COMPARISON: None. FINDINGS: Normal visualized tibia. Normal visualized fibula. The soft tissue structures are unremarkable. RAD/Tibia & Fibula 2 Views IMPRESSION: Normal x-ray examination of the tibia and fibula. Electronically Signed: Scott Valenzuela, at 10:12 EDT ,
== END | disposition home or self-care (01) ==
LOC: MTRAD 17:00
PROVIDERS: PCP Family Medicine; Referring Provider Family Medicine; Visit Provider Family Medicine
DX: M25.552 Pain in left hip (principal); M79.605 Pain in left leg
CPT/HCPCS: 73502; 73590

== ENCOUNTER → 2022-08-25 | Outpatient (CLI) | payer BC, SELFPAY ==
--- NOTE | 2022-08-25 12:48 | RAD_ITS ---
STUDY: X-RAY CHEST REASON FOR EXAM: Female, 57 years old. Influenza. TECHNIQUE: Frontal and lateral views of the chest. COMPARISON: July 02, 2021. FINDINGS: The lungs are clear and expanded. Stable scattered healed granulomatous calcifications. There is no demonstrated pleural abnormality. Normal size heart. Normal mediastinum and geoff. Normal visualized pulmonary arteries. Normal visualized aortic arch and descending thoracic aorta. Normal visualized thoracic spine. Normal visualized ribs, clavicles, and shoulders. Minimal pectus excavatum defect. There is no demonstrated abnormality of the visualized soft tissue structures of the upper abdomen. RAD/Chest PA and Lateral IMPRESSION: No interval change and no active or acute cardiopulmonary disease. Electronically Signed: Scott Valenzuela, at 13:11 [facility] ,
== END | disposition home or self-care (01) ==
LOC: MTRAD 12:39
PROVIDERS: PCP Family Medicine; Referring Provider Family Medicine; Visit Provider Family Medicine
DX: J11.1 Influenza due to unidentified influenza virus with other respiratory manifestations (principal)
CPT/HCPCS: 71046

== ENCOUNTER → 2023-03-01 | Outpatient (CLI) | payer BC, SELFPAY ==
--- NOTE | 2023-03-01 14:05 | BI_ITS ---
MAMMOGRAPHY - BILATERAL SCREENING REASON FOR EXAM: Female, 57 years old. Routine annual screening examination. PERTINENT HISTORY: Non-contributory. TECHNIQUE: Digital bilateral breast ravinder (3D mammographic acquisition) in the CC and MLO projections. 2-D mediolateral oblique (MLO) and craniocaudad (CC) views of both breasts were obtained. CAD: Full Field Digital Mammography with Computer Added Detection was performed. COMPARISON: Comparison is made with prior study April 29, 2021 and March 28, 2020. FINDINGS: Breast Composition: There are scattered areas of fibroglandular density. There are no dominant masses or suspicious calcifications. No other significant abnormalities are identified. There has been no significant change since the prior study. BI/SCRN MAMM (CAD)W/RAVINDER BILAT IMPRESSION: Stable bilateral screening mammogram. Yearly follow-up mammogram recommended. (A) ASSESSMENT CATEGORY: BIRADS Category 1: Negative. A letter regarding these results will be sent to the patient by the facility within 30 days. Approximately 10% of breast cancers are not detected by mammography. A normal mammogram should not delay biopsy of a clinically suspicious abnormality. [id number] Electronically Signed: Luis E Wilson MD at 14:48 EDT ,
== END | disposition home or self-care (01) ==
LOC: OPBI 14:03
PROVIDERS: PCP Family Medicine; Referring Provider Obstetrics & Gynecology; Visit Provider Obstetrics & Gynecology
DX: Z12.31 Encounter for screening mammogram for malignant neoplasm of breast (principal)
CPT/HCPCS: 77063; 77067

== ENCOUNTER → 2024-04-14 | Outpatient (CLI) | payer BC, SELFPAY ==
--- NOTE | 2024-04-14 07:52 | BI_ITS ---
MAMMOGRAPHY - BILATERAL SCREENING REASON FOR EXAM: Female, 58 years old. Routine annual screening examination. PERTINENT HISTORY: Non-contributory. TECHNIQUE: Digital bilateral breast ravinder (3D mammographic acquisition) in the CC and MLO projections. 2-D mediolateral oblique (MLO) and craniocaudad (CC) views of both breasts were obtained. CAD: Full Field Digital Mammography with Computer Added Detection was performed. COMPARISON: Comparison is made with prior study dated March 01, 2023 and April 29, 2021. FINDINGS: Breast Composition: The breasts are heterogeneously dense, which may obscure small masses. There are no dominant masses or suspicious calcifications. No other significant abnormalities are identified. There has been no significant change since the prior study. BI/SCRN MAMM (CAD)W/RAVINDER BILAT IMPRESSION: Stable bilateral screening mammogram. Yearly follow-up mammogram recommended. (A) ASSESSMENT CATEGORY: BIRADS Category 1: Negative. A letter regarding these results will be sent to the patient by the facility within 30 days. Approximately 10% of breast cancers are not detected by mammography. A normal mammogram should not delay biopsy of a clinically suspicious abnormality. [id number] Electronically Signed: Luis E Wilson MD at 9:05 EDT ,
== END | disposition home or self-care (01) ==
LOC: OPBI 07:51
PROVIDERS: PCP Family Medicine
DX: Z12.31 Encounter for screening mammogram for malignant neoplasm of breast (principal)
CPT/HCPCS: 77063; 77067

== ENCOUNTER → 2024-09-15 | Outpatient (CLI) | payer BC, SELFPAY ==
[2024-09-15 11:25] LABS: Anion Gap 6 (5-15); BUN 18 mg/dL (7-18); BUN/Creat Ratio 26.6 RATIO (10-20); Calcium,Total 9.2 mg/dL (8.5-10.1); Chloride 105 mmol/L (98-107); Cholesterol 229 mg/dL (200); Creatinine, Serum 0.68 mg/dL (0.55-1.02); EST Glomerular Filtration Rate 94 mL/min (>60); Est Glom Filt Rate - Afr Amer 114 mL/min (>60); Glucose 98 mg/dL (74-106); High Density Lipoprotein 105 mg/dL; Potassium 3.9 mmol/L (3.5-5.1); Sodium Level 140 mmol/L (136-145); Triglycerides 55 mg/dL; Very Low Density Lipoprotein 11 mg/dL (5-40)
== END | disposition home or self-care (01) ==
LOC: MFPLAB 09:06
PROVIDERS: PCP Family Medicine; Visit Provider Family Medicine
DX: Z00.00 Encounter for general adult medical examination without abnormal findings (principal)

== ENCOUNTER → 2025-05-03 | Outpatient (CLI) | payer BC, SELFPAY ==
--- NOTE | 2025-05-03 16:24 | BI_ITS ---
EXAM: SCRN MAMM (CAD)W/RAVINDER BILAT DATE: 05/03/2025 CLINICAL HISTORY: F, Age 59 y/o , SCREENING No family history. TECHNIQUE: Procedure Code: [id number] Modality: MG Procedure: SCRN MAMM (CAD)W/RAVINDER BILAT COMPARISON: Prior exam(s) dated April 14, 2024.. FINDINGS: TISSUE DENSITY: The breasts are heterogeneously dense, which may obscure small masses. Bilateral Breast Mammographic Findings: No significant masses, calcifications or other abnormalities are identified. No suspicious masses, areas of developing architectural distortion, or suspicious calcifications. There has been no significant interval change. BI/SCRN MAMM (CAD)W/RAVINDER BILAT IMPRESSION: Stable bilateral screening mammogram. OVERALL FINAL ASSESSMENT BI-RADS 1: NEGATIVE. RECOMMENDATION: Routine annual follow-up in 1 Year A letter with findings and recommendations will be mailed to the patient. Reading Location: [place] [id number]
--- OUTSIDE RECORDS SUMMARY | 2025-05-03 21:37 | XMS RPT_ITS | CCD ---
Author Organization [facility] Care Team Providers Care Sustainable Communities Designer Name Role Phone Dr. Andreina Trevino Primary Care Provider [phone] Dr. Andreina Trevino Referring Provider [phone] [place], [place] Tona Dueñas Attending Provider Andreina Trevino Primary Care Provider [phone] Kodi Saenz MD Primary Care Provider KAI STRAUSS Attending Unavailable KODI SAENZ Primary Care Unavailable KAI STRAUSS Attending Unavailable ANDREINA TREVINO Primary Care Unavailable Norberto Griffin NP Attending Unavailable Andreina Trevino Primary Care Unavailable Andreina Trevino Referring Unavailable Kodi Saenz Unavailable Andreina Trevino Primary Care Unavailable Margie Strauss Attending Unavailable Margie Strauss Referring Unavailable Andreina Trevino Primary Care Unavailable Medications Current Medications Medication Drug Class(es) Dates Sig (Normalized) Sig (Original) acetaminophen 325 mg / oxyCODONE hydrochloride 5 mg oral tablet (3 sources) Opioid Agonist Start: 06-29-2022 take 1 tablet by mouth every six hours Oxycodone-Acetami nophen (Percocet) 5-325 mg tablet Active 1 TABLET PO EVERY 6 HOURS 12 3 June 29, 2022 diazePAM 5 mg oral tablet (3 sources) Benzodiazepine Start: 06-29-2022 take 5 mg by mouth every eight hours Diazepam Active 5 MG PO EVERY 8 HOURS June 29, 2022 12:00am escitalopram 10 mg oral tablet (4 sources) Serotonin Reuptake Inhibitor Start: 07-11-2024 take 1 tablet by mouth once escitalopram oxalate (LEXAPRO) 10 mg tablet Take 1 tablet by mouth every afternoon. 07/11/2024 Active gabapentin 300 mg oral capsule (8 sources) Anti-epileptic Agent Start: 06-29-2022 take 300 mg by mouth at bedtime Gabapentin Active 300 MG PO AT BEDTIME June 29, 2022 12:00am metaxalone 800 mg oral tablet (3 sources) Start: 06-27-2022 take 0.5-1 doses by mouth three times daily for pain Metaxalone Active 800 MG PO THREE TIMES A DAY June 27, 2022 12:00am 1/2 to 1 pill for pain Multivitamin preparation (3 sources) Start: 10-23-2019 Multivitamin Active 1 EACH PO DAILY October 23, 2019 1:00am Start: 10-23-2019 Multivitamin A ctive 1 EACH PO DAILY October 23, 2019 12:00am ofloxacin 3 mg/ml ophthalmic solution (3 sources) Quinolone Antimicrobial Start: 02-08-2022 Ofloxacin Active 0 OPHTHALMIC .COMPLEX February 08, 2022 12:00am put 1-2 drps into affected eye(s) every 2-4 h x 2 days, then 1-2 drps 4 times/day days 3-7 ophthalmic (eye) predniSONE 10 mg oral tablet (3 sources) Start: 06-27-2022 Prednisone Act tiffany 10 MG PO .COMPLEX June 27, 2022 12:00am Take 4 pills for 4 days, 3 pills for 4 days, 2 pills for 4 days, take 1 pill for 4 days valACYclovir 1000 mg oral tablet (4 sources) Herpesvirus Nucleoside Analog DNA Polymerase Inhibitor, Herpes Simplex Virus Nucleoside Analog DNA Polymerase Inhibitor, Herpes Zoster Virus Nucleoside Analog DNA Polymerase Inhibitor Start: 12-08-2024 End: 12-18-2024 valACYclovir (VALTREX) 1 gram tablet Take 1 tablet by mouth two times a day for 10 days. FOR 10 DAYS. 20 tablet 1 12/08/2024 12/18/2024 Active Start: 10-11-2024 End: 10-21-2024 valACYclovir (VALTREX) 1 gra m tablet Take 1 tablet by mouth two times a day for 10 days. FOR 10 DAYS. 20 tablet 1 10/11/2024 10/21/2024 Active Completed/Discontinued Medications Medication Drug Class(es) Dates Sig (Normalized) Sig (Original) amoxicillin 500 mg oral capsule (3 sources) Penicillin-class Antibacterial Start: 02-04-2021 End: 02-14-2021 take 1000 mg by mouth twice daily Amoxicillin Discontinued 1000 MG PO TWICE A DAY 40 February 04, 2021 12:00am February 14, 2021 12:01am benzonatate 200 mg oral capsule (3 sources) Non-narcotic Antitussive Start: 08-25-2017 End: 05-28-2019 take 200 mg by mouth three times daily Benzonatate Discontinued 200 MG PO THREE TIMES A DAY August 25, 2017 1:00am May 28, 2019 10:55am Problems Active Problems Problem Classification Problem Date Documented Date Episodic/Chronic Chronic obstructive pulmonary disease and bronchiectasis (3 sources) Bronchitis; Translations: [Bronchitis, not specified as acute or chronic] 08-25-2017 Episodic Immunizations and screening for infectious disease (1 source) Encounter for screening for human papillomavirus (HPV); Translations: [Encounter for screening for human papillomavirus (HPV)] Onset: 04-04-2025 Episodic Nonmalignant breast conditions (3 sources) Breast lump; Translations: [Unspecified lump in unspecified breast] 05-13-2021 Episodic Nonspecific chest pain (3 sources) Chest pain; Translations: [Chest pain, unspecified] 07-10-2021 Episodic Other connective tissue disease (3 sources) Spasm; Translations: [Other muscle spasm] 07-07-2022 Episodic Other female genital disorders (1 source) Burning sensation of vagina; Translations: [Other specified conditions associated with female genital organs and menstrual cycle] 10-11-2024 Episodic Other female genital disorders (1 source) Vaginal lesion; Translations: [Other specified noninflammatory disorders of vagina] 10-11-2024 Episodic Other screening for suspected conditions (not mental disorders or infectious disease) (7 sources) Patient encounter status; Translations: [Encounter for screening for malignant neoplasm of intestinal tract, unspecified] Onset: 04-04-2025 10-27-2019 Episodic Other upper respiratory infections (6 sources) Upper respiratory infection; Translations: [Acute upper respiratory infection, unspecified] 05-28-2019 Episodic Spondylosis; intervertebral disc disorders; other back problems (5 sources) Sciatica; Translations: [Sciatica, left side] Episodic Superficial injury; contusion (3 sources) Abrasion of left cornea; Translations: [Injury of conjunctiva and corneal abrasion without foreign body, left eye, initial encounter] 02-08-2022 Episodic Viral infection (1 source) Herpetic vulvovaginitis; Translations: [Herpesviral vulvovaginitis] 10-11-2024 Chronic Past or Other Problems Problem Classification Problem Date Documented Da te Episodic/Chronic Inflammation; infection of eye (except that caused by tuberculosis or sexually transmitteddisease) (1 source) Hordeolum externum right lower eyelid; Translations: [Hordeolum externum right lower eyelid] Onset: 04-29-2024 Episodic Results Test Name Value Interpretation Reference Range Facility CNOVon 04-04-2025 CNOV Office Visit (OBGYWM ) ANNELIESE DELCID ([id number]) 1965 F Date Time Provider Department 04/04/25 8:00 AM KAI STRAUSS OBCAROLE During your visit today, we recorded the following information about you: Blood pressure Weight Height 108/62 55.3 kg 1.651 m Kai Strauss MD 04/04/2025 8:55 AM Signed Anneliese is a 59 year old who presents for an annual gynecologic exam without complaints. Postmenopausal: Yes since age 48 HRT use: No. Still get period: No LMP: postmenopausal Menopause symptoms: None Time with current partner: 5 years Number of lifetime partners: control frequency: Never HPV vaccine: No; Last pap smear: 04/14/2021 History of abnormal pap: Yes, history of abnormal PAP smears Bothersome pelvic pain: No Last mammogram: 2023 normal History of abnormal mammogram: No Recent HSV 1 outbreak OB History Gravida2 Para0 Term0 Preterm0 AB0 Living3 SAB0 IAB0 Ectopic0 Multiple1 Live Births0 Rehabilitation Caseworker History LMP: Postmenopausal Age at Menarche: 12 Age at First : Age at Menopause: Rehabilitation Caseworker History Comments: Sexual Activity: Yes; Male Contraception: No contraception data on record PAST MEDICAL HISTORY Diagnosis Date Degeneration of lumbar or lumbosacral intervertebral disc PAST SURGICAL HISTORY Procedure Laterality Date PAST SURGICAL HISTORY OF 2010 cardiac ablation FAMILY HISTORY Problem Relation Age of Onset Hypertension Mother Hypertension Father Seizures Brother No Known Problems Brother No Known Problems Maternal Grandmother No Known Problems Maternal Grandfather No Known Problems Paternal Grandmother No Known Problems Paternal Grandfather SOCIAL HISTORY Social History Tobacco Use Smoking status: Never Smokeless tobacco: Never Vaping Use Vaping status: Never Used Substance Use Topics Alcohol use: Yes Comment: occasional Drug use: Never REVIEW OF SYSTEMS Abdomen: No abdominal pain, nausea, vomiting, diarrhea, or constipation. No bloating, early satiety, indigestion, or increased flatulence. Bladder: No dysuria, gross hematuria, urinary frequency, urinary urgency, or incontinence Breast: No breast lumps, nipple d/c, overlying skin changes, redness or skin retraction Allergies and current medication updated:Yes SENSITIVE EXAM: The sensitive examination was discussed with the Patient or Patient's Authorized Plastic Welder. As applicable, any other physician, advance practice provider, medical student, or other health professional student that will be observing or involved in the sensitive examination for educational or training purposes was discussed with the Patient or Authorized Plastic Welder. The Patient or Authorized Plastic Welder has agreed to proceed with the sensitive examination. (Sensitive examination includes inspection and/or palpation of the breasts, pelvis, prostate and anorectal regions). EXAM: Ht 5' 5 (1.65m) Wt 122 lb (55.3kg) BMI 20.30 kg/(m2). GENERAL: pleasant, female in no apparent distress HEENT: Normocephalic, atraumatic, mucus membranes moist, and no lesions NECK: Supple, full range of motion, no adenopathy, and thyroid normal DERMATOLOGY: Normal, without lesions, non-icteric, and non-hirsute BREAST: soft, non-tender, symmetric, no dominant mass, normal nipple-areolar complex, no lymphadenopathy, and no nipple discharge CHEST: Normal inspiratory effort ABDOMEN: soft, non-tender, and no masses PELVIC: external genitalia normal, normal Bartholin's glands, urethra, Wassaic's glands, no vulvar lesions, no cervical lesions, good vaginal support, physiologic discharge present, normal appearing perineal body and perianal region BIMANUAL: uterus normal size, shape and consistency, no adnexal masses, and non-tender RECTOVAGINAL: rectovaginal exam negative for any masses or nodularity. NEURO: alert and oriented x3,exam grossly non-focal EXTREMITIES: normal ASSESSMENT/PLAN: 1) Health maintenance: Pap done with reflex HPV 2) Follow up one year or sooner as needed Kai Strauss MD Allergies As of Date: 04/04/2025 (No Known Allergies) Date Reviewed: 04/04/2025 Reviewed by: Penelope Long LPN - Fully Assessed Reason for Visit: Well Woman [1463] Primary Visit Diagnosis:Encounter for gynecological examination (general) (routine) without abnormal findings [Z01.419] Other Visit Diagnoses:Encounter for screening for human papillomavirus (HPV) [Z11.51] Pap smear for cervical cancer screening [Z12.4] Encounter for screening mammogram for breast cancer [Z12.31] Order(s):IRON SCREENING W RAVINDER [[id number]] Order #: [id number] FUTURE PAP TEST [[id number]] Order #: [id number] Prescriptions as of 04/04/2025 - escitalopram oxalate (LEXAPRO) 10 mg tablet Take 1 tablet by mouth every afternoon. - gabapentin (NEURONTIN) 300 mg capsule Take 300 mg by mouth once daily. P (more content not included)... Normal [facility] HIGH RISK HUMAN PAPILLOMA KONG (HPV), PCR FOR DETECTION AND GENOTYPINGon 04-04-2025 HPV 16 Ag Ql (Unsp spec) Not detected Normal Not detected [facility] Comment on above: Order Comment: Speci men Type: FLUID SPECIMEN Ordering Facility: [facility] Address: [address] [place] [address] Performed By: #### H PVHRT #### [facility] CLIA [id number] [address] [place] [address] [place] HPV 18 Ag Ql (Unsp spec) Not detected Normal Not detected [facility] Comment on above: Order Comment: Speci men Type: FLUID SPECIMEN Ordering Facility: [facility] Address: [address] [place] [address] Performed By: #### H PVHRT #### [facility] CLIA [id number] [address] [id number] [address] [place] HPV 31+33+35+39+45+51+52 +56+58+59+66+68 DNA DAWOOD+probe Ql (Cvx) Not detected Normal Not detected [facility] Comment on above: Order Comment: Speci men Type: FLUID SPECIMEN Ordering Facility: [facility] Address: [address] [place] [address] Result Comment: High Risk HPV Other Type includes HPV types 31, 33, 35, 39, 45, 51, 52, 56, 58, 59, 66 and 68. Performed By: #### H PVHRT #### [facility] CLIA [id number] [address] [place] [address] [place] PAP TESTon 04-04-2025 ADEQUACY Normal [facility] Comment on above: Order Comment: Speci men Type: FLUID SPECIMEN Ordering Facility: [facility] Address: [address] [place] [address] Result Comment: Sati sfactory for interpretation. Limited cellularity. Performed By: #### L [id number] #### [facility] CLIA [id number] [address] [place] [address] [place] CASE REPORT Normal [facility] Comment on above: Order Comment: Kimberlee men Type: FLUID SPECIMEN Ordering Facility: [facility] Address: [address] [place] [address] Result Comment: Gyne cologic Cytology Report Case: [id number] Authorizing Provider: Kai Strauss MD Collected: 04/04/2025 11:28 AM Ordering Location: OB/Gynecology Received: 04/04/2025 11:53 AM First Screen: Aramouni, Flor, CT, ASCP Specimen: Pap Test, ThinPrep, Cervix Performed By: #### L [id number] #### [facility] CLIA [id number] [address] [place] [address] [place] CLINICAL HISTORY, CYTOLOGY, SMT TECHNICIAN Routine Exam Normal [facility] Comment on above: Order Comment: Speci men Type: FLUID SPECIMEN Ordering Facility: [facility] Address: [address] [place], [place] [id number] Result Comment: Post Menopausal Performed By: #### L [id number] #### [facility] CLIA [id number] [address] [place], [place] [address] [place] CYTOLOGY PAP OTHER INTERPRETATION Atrophic specimen. Normal [facility] Comment on above: Order Comment: Speci men Type: FLUID SPECIMEN Ordering Facility: [facility] Address: [address] [place] [address] Performed By: #### L [id number] #### [facility] CLIA [id number] [address] [place] [address] FINAL PERFORMING LAB Normal [facility] Comment on above: Order Comment: Speci men Type: FLUID SPECIMEN Ordering Facility: [facility] Address: [address] [place] [address] Result Comment: Tech nical component, supervisor offset plate preparation screening performed at: [facility], [address] [place] [address] [place] [address] CLIA: [id number] Diagnostic interpretation performed at: [facility], [address] [place], [place] [id number] CLIA# [id number] [place] Tour Guide: Josesito Bergeron MD Performed By: #### L [id number] #### [facility] CLIA [id number] [address] [place], [place] [address] [place] INTERPRETATION, CYTOLOGY, SMT TECHNICIAN Normal [facility] Comment on above: Order Comment: Speci men Type: FLUID SPECIMEN Ordering Facility: [facility] Address: [address] [place], [place] [id number] Result Comment: Nega tive for intraepithelial lesion or malignancy. at 1359 EDT Performed By: #### L [id number] #### [facility] CLIA [id number] [address] [place], [place] [address] [place] PAP DISCLAIMER COMMENT The Pap Smear is a screening test for cervical cancer. False negative results occur with all screening tests, emphasizing the need for rescreening at recommended intervals, and clinical correlation. Normal [facility] Comment on above: Order Comment: Specdavid men Type: FLUID SPECIMEN Ordering Facility: [facility] Address: [address] [place] [address] Performed By: #### L [id number] #### [facility] CLIA [id number] [address] [place] [address] [place] PAP VALVE SEATER OPERATOR COMMENT This specimen has be en analyzed by the FDA-approved [employer] System, which uses digital imaging and an enhanced artificial intelligence image analysis algorithm to identify tanner of interest on the microscopic slide, to assist the hedis registered nurse rn and pathologist in evaluating cells on ThinPrep Pap tests. Following analysis, tanner of interest on the microscopic slide selected by the algorithm are reviewed by a hedis registered nurse rn. If a sample requires hierarchical review, the pathologist will review the same tanner of interest selected by the algorithm prior to final interpretation. Normal [facility] Comment on above: Order Comment: Kimberlee spivey Type: FLUID SPECIMEN Ordering Facility: [facility] Address: [address] [place] [address] Performed By: #### L [id number] #### [facility] CLIA [id number] [address] [place] [address] OF [place] Julio C 10-12-2024 REGINA Telephone (OBGYWM) ANNELIESE DELCID ([id number]) 1965 F Date Time Provider Department 10/12/24 KAI STRAUSS During your visit today, we recorded the following information about you: Adriel Hassan RN 10/12/2024 11:49 AM Signed Kai Strauss MD to [facility] Ob-Rehabilitation Caseworker Pool High Priority 10/12/24 11:22 AM + Herpes culture Patient treated w Adriel Romero RN 10/12/2024 11:49 AM Signed Pt states she was notified by Dr. Struass. Adriel Hassan RN Allergies As of Date: 10/12/2024 (No Known Allergies) Date Reviewed: 10/11/2024 Reviewed by: Fannie Ivan MA - Fully Assessed Reason for Visit: Results [95] Prescriptions as of 10/12/2024 - escitalopram oxalate (LEXAPRO) 10 mg tablet Take 1 tablet by mouth every afternoon. - valACYclovir (VALTREX) 1 gram tablet Take 1 tablet by mouth two times a day for 10 days. FOR 10 DAYS. - gabapentin (NEURONTIN) 300 mg capsule Take 300 mg by mouth two times a day. Problem List As Of Date: 10/12/2024 (None) Encounter Status:Closed by ADRIEL HASSAN on 10/12/24 Normal [facility] CNCOon 10-11-2024 CNCO Letter Text [facility] CNOVon 10-11-2024 CNOV Office Visit (OBGYWM ) ANNELIESE DELCID ([id number]) 1965 F Date Time Provider Department 10/11/24 8:00 AM KAI STRAUSS OBGYWM During your visit today, we recorded the following information about you: Kai Strauss MD 10/11/2024 8:45 AM Signed Credit Control Administrator offered: Patient accepts, visit chaperoned by Destini/TRISH. Anneliese Delcid is a 59 year old female who presents for problem visit c/o sores and blisters on the vulva and between the breasts days after sexual contact with partner with cold sores.. HPI: as above OB History Gravida2 Para0 Term0 Preterm0 AB0 Living3 SAB0 IAB0 Ectopic0 Multiple1 Live Births0 Rehabilitation Caseworker History LMP: Postmenopausal Age at Menarche: Age at First : Age at Menopause: Rehabilitation Caseworker History Comments: Sexual Activity: Yes; Male Contraception: No contraception data on record No past medical history on file. PAST SURGICAL HISTORY Procedure Laterality Date PAST SURGICAL HISTORY OF 2010 cardiac ablation FAMILY HISTORY Problem Relation Age of Onset Hypertension Mother Hypertension Father Seizures Brother No Known Problems Brother No Known Problems Maternal Grandmother No Known Problems Maternal Grandfather No Known Problems Paternal Grandmother No Known Problems Paternal Grandfather Social History Tobacco Use Smoking status: Never Smokeless tobacco: Never Vaping Use Vaping status: Never Used Substance Use Topics Alcohol use: Yes Comment: occasional Drug use: Never Current Outpatient Medications Medication Sig gabapentin (NEURONTIN) 300 mg capsule Take 300 mg by mouth two times a day. No current facility-administered medications for this visit. Allergies As of Date: 10/11/2024 (No Known Allergies) Fully Assessed 04/03/2024 REVIEW OF SYSTEMS Abdomen: No bloating, early satiety, indigestion, or increased flatulence. No abdominal pain, nausea, vomiting, diarrhea, or constipation. Bladder: No dysuria, gross hematuria, urinary frequency, urinary urgency, or incontinence. Breast: No breast lumps, nipple d/c, overlying skin changes, redness or skin retraction. Expanded ROS: N/A Allergies and current medication updated:Yes SENSITIVE EXAM: The sensitive examination was discussed with the Patient or Patient's Authorized Plastic Welder. As applicable, any other physician, advance practice provider, medical student, or other health professional student that will be observing or involved in the sensitive examination for educational or training purposes was discussed with the Patient or Authorized Plastic Welder. The Patient or Authorized Plastic Welder has agreed to proceed with the sensitive examination. (Sensitive examination includes inspection and/or palpation of the breasts, pelvis, prostate and anorectal regions). EXAM: There were no vitals taken for this visit. GENERAL: pleasant, female in no apparent distress PELVIC: vulvar blisters and sores BIMANUAL: deferred ASSESSMENT AND PLAN: Assessment AND Plan Vaginal burning Vaginal lesion Orders: HERPES SIMPLEX VIRUS (HSV-1 AND HSV-2) AND VARICELLA ZOSTER VIRUS (VZV), NAAT, LESION SWAB Herpes simplex vulvovaginitis tx valtrex ftft> 30 min Kai Strauss MD Allergies As of Date: 10/11/2024 (No Known Allergies) Date Reviewed: 10/11/2024 Reviewed by: Fannie Ivan MA - Fully Assessed Reason for Visit: Vaginal Problem [117] Visit Diagnoses:Vaginal burning [N94.89] Vaginal lesion [N89.8] Herpes simplex vulvovaginitis [A60.04] Order(s):HERPES SIMPLEX VIRUS (HSV-1 AND HSV-2) AND VARICELLA ZOSTER VIRUS (VZV), NAAT, LESION SWAB [[id number]] Order #: [id number]. #:[id number] valACYclovir (VALTREX) 1 gram tabletTake 1 tablet by mouth two times a day for 10 days. FOR 10 DAYS.Disp: 20 tabletRfl: 1 Prescriptions as of 10/11/2024 - escitalopram oxalate (LEXAPRO) 10 mg tablet Take 1 tablet by mouth every afternoon. - valACYclovir (VALTREX) 1 gram tablet Take 1 tablet by mouth two times a day for 10 days. FOR 10 DAYS. - gabapentin (NEURONTIN) 300 mg capsule Take 300 mg by mouth two times a day. Problem List As Of Date: 10/11/2024 (None) Prescriptions ordered this encounter Disp Refills Start End VALACYCLOVIR 1 GRAM TABLET 20 t* 1 10/11/2024 10/21/2024 Route: ORAL Sig: Take 1 tablet by mouth two times a day for 10 days. FOR 10 DAYS. Encounter Status:Closed by KAI STRAUSS on 10/11/24 Normal [facility] HSV+VZV DNA DAWOOD+probe Ql (Un sp spec)on 10-11-2024 HSV 1 DNA DAWOOD+probe Ql (Unsp spec) Detected Abnormal Not Detected [facility] Comment on above: Order Comment: Speci men Type: SWAB Ordering Facility: [facility] Address: [address] [place] [address] Performed By: #### 3 3027-4 #### [facility] CLIA [id number] [address] [place] [address] [place] [address] [place] HSV 2 DNA DAWOOD+probe Ql (Unsp spec) Not detected Normal Not Detected [facility] Comment on above: Order Comment: Speci men Type: SWAB Ordering Facility: [facility] Address: [address] [place] [address] Performed By: #### 3 3027-4 #### [facility] CLIA [id number] [address] [place] [address] [place] VZV DNA DAWOOD+probe Ql (Unsp spec) Not detected Normal Not Detected [facility] Comment on above: Order Comment: Speci men Type: SWAB Ordering Facility: [facility] Address: [address] [place] [address] Performed By: #### 3 3027-4 #### [facility] CLIA [id number] [address] [place] [address] [place] Basic Metabolic Profile (BMP )on 09-15-2024 BUN/CRE 26.6 RATIO High 10-20 [facility] Comment on above: Performed By: #### L 500.2500, L500.4100 #### [facility] [address] [place], [address] CA,Total 9.2 mg/dL Normal 8.5-10.1 [facility] Comment on above: Performed By: #### L 500.2500, L500.4100 #### [facility] [address] [place], [address] Chloride [Moles/Vol] 105 mmol/L Normal 98-107 [facility] Comment on above: Performed By: #### L 500.2500, L500.4100 #### [facility] [address] [place], [address] CO2 [Moles/Vol] 28.0 mmol/L Normal 21.0-32.0 [facility] Comment on above: Performed By: #### L 500.2500, L500.4100 #### [facility] [address] [place], [address] Creatinine [Mass/Vol] 0.68 mg/dL Normal 0.55-1.02 [facility] Comment on above: Result Comment: The validity of the calculated GFR GFRAA in patients over 70 years has not been determined. Clinical correlation is essential. Performed By: #### L 500.2500, L500.4100 #### [facility] [address] [place], [address] EST GFR - AA 114 mL/min Normal >60 [facility] Comment on above: Result Comment: Afri can Azerbaijani GFR Calc Performed By: #### L 500.2500, L500.4100 #### [facility] [address] [place], [address] GAP 6 Normal 5-15 [facility] Comment on above: Performed By: #### L 500.2500, L500.4100 #### [facility] [address] [place], [address] GFR/1.73 sq M.predicted among non-blacks MDRD (S/P/Bld) [Vol rate/Area] 94 mL/min/{1.73_m2} Normal >60 [facility] Comment on above: Result Comment: Non- GFR Calc Performed By: #### L 500.2500, L500.4100 #### [facility] [address] [place], [address] Glucose [Mass/Vol] 98 mg/dL Normal 74-106 [facility] Comment on above: Performed By: #### L 500.2500, L500.4100 #### [facility] [address] [place], [address] Potassium [Moles/Vol] 3.9 mmol/L Normal 3.5-5.1 [facility] Comment on above: Performed By: #### L 500.2500, L500.4100 #### [facility] [address] [place], [address] Sodium [Moles/Vol] 140 mmol/L Normal 136-145 [facility] Comment on above: Performed By: #### L 500.2500, L500.4100 #### [facility] [address] [place], [address] Urea nitrogen [Mass/Vol] 18 mg/dL Normal 7-18 [facility] Comment on above: Performed By: #### L 500.2500, L500.4100 #### [facility] [address] [place], [address] Lipid Profileon 09-15-2024 Cholesterol [Mass/Vol] 229 mg/dL High 200 [facility] Comment on above: Result Comment: <200 mg/dL Desirable 200-240 mg/dL Borderline >240 mg/dL High Risk Performed By: #### L 500.2500, L500.4100 #### [facility] [address] [place], [address] Cholesterol in HDL [Mass/Vol] 105 mg/dL Normal [facility] Comment on above: Result Comment: The drugs N-Acetylcysteine and Metamizole may falsely depress this assay. Reference Range HDL <40 mg/dL Low HDL Cholesterol HDL >or= 60 mg/dL High HDL Cholesterol Performed By: #### L 500.2500, L500.4100 #### [facility] [address] [place], [address] Cholesterol in LDL [Mass/Vol] 113 mg/dL Normal 0-130 [facility] Comment on above: Performed By: #### L 500.2500, L500.4100 #### [facility] [address] [place], [address] Cholesterol in VLDL [Mass/Vol] 11 mg/dL Normal 5-40 [facility] Comment on above: Performed By: #### L 500.2500, L500.4100 #### [facility] [address] [place], [address] Triglyceride [Mass/Vol] 55 mg/dL Normal [facility] Comment on above: Result Comment: The drugs N-Acetylcysteine and Metamizole may falsely depress this assay. Serum Triglycerides Reference Interval Normal <150 mg/dL Borderline high 150 - 199 mg/dL High 200 - 499 mg/dL Very High > or = 500 mg/dL Performed By: #### L 500.2500, L500.4100 #### [facility] [address] [place], [address] Urgent Care Visit Reporton 0 04-29-2024 Urgent Care Visit Report [facility] [address], [address] [place], [place] [address] OFFICE VISIT Date of Service: 04/29/24 MR#: [id number] Acct: [id number] Name: ANNELIESE DELCID Rep #: [id number] : 1965 Provider: JEFF boykin Age/Sex: 58/F Location: [facility] Status: Signed Intake Vital Signs 07/21/23 07:43 04/29/24 08:18 Height 5 ft 3 in 5 ft 3 in Weight: 122 lb BMI 21.6 BP 135/78 H 102/60 Blood Pressure Location Lt brachial Position Sitting Sitting Pulse 98 76 Pulse Source Monitor Temp 99.4 F H 97.8 F Temp Source Temporal Temporal Pulse Oximetry (%) 97 98 Oxygen Delivery Method room air room air Intake Visit Reasons: R EYE IRRITATION Is patient in pain?: Yes Pain scale (1-10): 2 Allergies No Known Allergies Allergy (Verified 04/29/24 08:20) Medications ???Medication ???Instructions ???Recorded ???Confirmed ???Type bacitracin 500 unit/gram eye 1 applic ophthalmic (eye) Q12H 7 04/29/24 04/29/24 Rx ointment days #3.5 grams escitalopram oxalate 10 mg tablet 10 mg PO QDAY 04/29/24 04/29/24 History PFSH Medical History Cough Palpable mass of breast SVT (supraventricular tachycardia) Surgical History History of cardiac radiofrequency ablation Family History Other Arthritis Social History Smoking Status: Never smoker alcohol intake: current alcohol intake frequency: holidays/special occasions only Alcohol type: wine what type of physical activity do you participate in: walking frequency: 1-2 times per week duration: 15-30 minutes/day HPI HPI Details: ANNELIESE DELCID, is a 58 F who presents to the office today for stye in her right eye. Patient noticed in (2 days ago) and has been doing warm compresses. Patient state this morning it looks like it is draining more. Patient can't look down and she said it tender to touch. ROS Const Constitutional: Positive for other (See HPI) Exam Eyes General: appearance normal, both eyes and all related structures Visual Tanner: normal visual tanner by confrontation Alignment and Position: alignment normal Periorbital: periorbital findings normal Eyelids: eyelid abnormality right lower eyelid other (Stye like) Conjunctivae: conjunctivae normal Sclera: sclerae normal Cornea: corneas normal Pupils: PERRL EOM: EOM intact bilaterally Direct ophthalmoscopy: normal light reflex Coding Level of Care Code Off vis,est,level 3 Diagnoses Hordeolum externum of right lower eyelid H00.012 Laterality: right Eyelid: lower Assessment and Plan Assessment and Plan (1) Stye: Status: Acute Qualifiers: Laterality: right Eyelid: lower Qualified Code(s): H00.012 - Hordeolum externum right lower eyelid Plan: She will continue warm compress and add antibiotic ointment to assist. Encouraged to get plenty of rest, drink lots of clear liquids, and use Tylenol or Ibuprofen (unless contraindicated) for fever and comfort. Patient also educated on other symptomatic management techniques. To be seen in 7-10 days if no improvement; sooner if worsening of symptoms.??? Patient advised of potential red flags and when appropriate to report to the ED.??? Patient verbalized understanding and agreement with all the above. Medications: New bacitracin 1 applic ophthalmic (eye) Q12H 7 days 3.5 grams 0RF 04/29/24 0837 Date Norberto Rosales [facility] CERTIFIED DRIVER EXAMINER CERTIFIED DRIVER EXAMINER-C Vitorer Signature: Date (if applicable) CC: Dr. Andreina Trevino MD [facility] Vital Signs Date Time Vital Sign Value Performing Clinician Jose Di farshad 04-03-2024 09:01-0400 Body height 158.8 cm Kai Strauss MD Work Phone: [facility] 04-03-2024 09:01-0400 Body mass index (BMI) [Ratio] 21.99 kg/m2 Kai Strauss MD Work Phone: [facility] 04-03-2024 09:01-0400 Body weight 55.43 kg Kai Strauss MD Work Phone: [facility] 04-03-2024 09:01-0400 Diastolic blood pressure 60 mm[Hg] Kai Strauss MD Work Phone: [facility] 04-03-2024 09:01-0400 Systolic blood pressure 100 mm[Hg] Kai Strauss MD Work Phone: [facility] 06-29-2022 12:32-0400 Respiratory rate 18 /min Dr. Andreina Trevino Work Phone: [facility] Work Phone: 06-29-2022 12:32-0400 SaO2% (BldA) [Mass fraction] 99 % Dr. Andreina Trevino Work Phone: [facility] Work Phone: 06-29-2022 08:35-0400 Body height 160.[address] Andreina Trevino Work Phone: [facility] Work Phone: 06-29-2022 08:35-0400 Body mass index (BMI) [Ratio] 21.7 kg/m2 Dr. Andreina Trevino Work Phone: [facility] Work Phone: 06-29-2022 08:35-0400 Body temperature 96.8 [degF] Dr. Andreina Trevino Work Phone: [facility] Work Phone: 06-29-2022 08:35-0400 Body weight 55.[address] Andreina Trevino Work Phone: [facility] Work Phone: 06-29-2022 08:35-0400 Diastolic blood pressure 72 mm[Hg] Dr. Andreina Trevino Work Phone: [facility] Work Phone: 06-29-2022 08:35-0400 Heart rate 97 /min Dr. Andreina Trevino Work Phone: [facility] Work Phone: 06-29-2022 08:35-0400 Systolic blood pressure 136 mm[Hg] Dr. Andreina Trevino Work Phone: [facility] Work Phone: 06-27-2022 09:18-0400 Body temperature 98.6 [degF] Dr. Andreina Trevino Work Phone: [facility] Work Phone: 06-27-2022 09:18-0400 Diastolic blood pressure 72 mm[Hg] Dr. Andreina Trevino Work Phone: [facility] Work Phone: 06-27-2022 09:18-0400 Heart rate 97 /min Dr. Andreina Trevino Work Phone: [facility] Work Phone: 06-27-2022 09:18-0400 Respiratory rate 14 /min Dr. Andreina Trevino Work Phone: [facility] Work Phone: 06-27-2022 09:18-0400 SaO2% (BldA) [Mass fraction] 98 % Dr. Andreina Trevino Work Phone: [facility] Work Phone: 06-27-2022 09:18-0400 Systolic blood pressure 122 mm[Hg] Dr. Andreina Trevino Work Phone: [facility] Work Phone: Encounters Encounter Date Encounter Type Care Provider Facility Start: 05-03-2025 ambulatory Margie Strauss Facilit y:[facility] Start: 04-04-2025 End: 04-04-2025 ambulatory KAI STRAUSS Facility:[facility] Start: 04-04-2025 Encounter for gynecological examination (general) (routine) without abnormal findings KAI STRAUSS [facility] Start: 12-08-2024 End: 12-08-2024 Refill Kai Strauss MD Work Phone: OB/Gynecology Comment on above: Refill Request Start: 10-12-2024 End: 10-12-2024 Follow-up encounter Kai Strauss MD Work Phone: OB/Gynecology Start: 10-12-2024 End: 10-12-2024 Telephone encounter Kai Strauss MD Work Phone: OB/Gynecology Comment on above: Results Start: 10-11-2024 End: 10-11-2024 ambulatory KAI STRAUSS Facility:[facility] Start: 10-11-2024 End: 10-11-2024 Patient encounter procedure Kai Strauss MD Work Phone: OB/Gynecology Comment on above: Vaginal burning; Vaginal lesion; Herpes simplex vulvovaginitis Start: 10-04-2024 Encounter for genera l adult medical examination without abnormal findings Kodi Saenz [facility] Start: 09-15-2024 End: 09-15-2024 ambulatory Kodi Saenz Facility:[facility] Start: 04-29-2024 End: 04-29-2024 ambulatory Norberto Griffin NP Facility:[facility] Start: 04-03-2024 End: 04-03-2024 Patient encounter procedure Kai Strauss MD Work Phone: OB/Gynecology Comment on above: Encounter for gyneco logical examination (general) (routine) without abnormal findings (Primary Dx); Encounter for screening mammogram for breast cancer Start: 04-03-2024 End: 04-03-2024 Patient encounter status Kai Strauss MD Work Phone: [facility] Start: 03-01-2023 End: 03-01-2023 ambulatory [facility] Work Phone: Start: 03-01-2023 End: 03-01-2023 Patient encounter procedure [facility] Work Phone: Start: 08-25-2022 End: 08-25-[address] Andreina Trevino Work Phone: [facility] Work Phone: Start: 08-25-2022 End: 08-25-[address] Andreina Trevino Work Phone: [facility] Start: 07-01-2022 End: 07-01-[address] Andreina Trevino Work Phone: [facility] Work Phone: Start: 07-01-2022 End: 07-01-[address] Andreina Trevino Work Phone: [facility] Start: 06-29-2022 End: 06-29-2022 Emergency department patient visit Dr. Andreina Trevino Work Phone: [facility] Start: 06-27-2022 End: 06-27-[address] [facility] Procedures Date Procedure Procedure Detail Performing Clinician Start: 03-01-2023 Screening mammography Start: 08-25-2022 Plain chest X-ray Dr. Yesy Trevino Work Phone: Start: 07-01-2022 Plain x-ray of pelvi s and lower extremity Dr. Andreina Trevino Work Phone: Start: 07-01-2022 Plain X-ray of tibia and fibula Dr. Andreina Trevino Work Phone: Start: 06-29-2022 X-ray of lumbar spin e, two or three views Dr. Andreina Trevino Work Phone: Plan of Treatment Date Care Activity Detail Author Start: 2038 RSV Vaccine (1 - 1-d ose 75+ series) RSV Vaccine (1 - 1-dose 75+ series) [facility] Start: 04-17-2026 Screening for malign ant neoplasm of cervix Cervical Cancer Screening [facility] Start: 04-14-2025 Screening for malign ant neoplasm of breast Mammogram Screening [facility] Start: 04-04-2025 End: 04-04-2025 Patient encounter procedure 04/04/2025 8:00 AM EDT Office Visit OB/Gynecology [address] [place], [place] [id number] Kai Strauss MD [address] [place], [place] [id number] ANNUAL OB/Gynecology Comment on above: ANNUAL Start: 04-30-2024 Covid-19 Vaccine ( season) Covid-19 Vaccine ( season) [facility] Start: 04-30-2024 Influenza vaccination Influenza Vacc ine (#1) [facility] Start: 2023 RSV Vaccine (1 - 1-d ose 60+ series) RSV Vaccine (1 - 1-dose 60+ series) [facility] Start: 04-30-2023 Covid-19 Vaccine ( season) Covid-19 Vaccine ( season) [facility] Start: 2013 Pneumococcal Vaccine : 50+ (1 of 1 - PCV) Pneumococcal Vaccine: 50+ (1 of 1 - PCV) [facility] Start: 2013 Shingrix Vaccine (1 of 2) Shingrix Vaccine (1 of 2) [facility] Start: 2008 Diabetes Screening Diabetes Screenin g [facility] Start: 2008 Lipid panel Lipid Screening [facility] damaso [facility] Start: 2008 Screening for malign ant neoplasm of colon [facility] Start: 2003 Screening for malign ant neoplasm of breast Mammogram Screening [facility] Start: 1984 Screening for malign ant neoplasm of cervix Cervical Cancer Screening [facility] Start: 1982 Urine microalbumin profile DTaP,Tdap,Td Vaccine (1 - Tdap) [facility] Start: 1981 Anxiety Screening Anxiety Screening [facility] Start: 1981 Depression Screening Depression Scre ening [facility] Start: 1981 Hepatitis C screening Hepatitis C Sc reening [facility] Start: 1981 HIV screening HIV Screening [facility] chrissy [facility] End: 05-03-2025 DBT Breast - bilateral screening IRON SCREENING W RAVINDER Radiology Routine Encounter for screening mammogram for breast cancer 1 Occurrences starting 04/03/2024 until 05/03/2025 [facility] Work Phone: Comment on above: 1 Occurrences starti ng 04/03/2024 until 05/03/2025 Herpes simplex virus+Varicella zoster virus DNA [Presence] in Unspecified specimen by DAWOOD with probe detection HERPES SIMPLEX VIRUS (HSV-1 & HSV-2) AND VARICELLA ZOSTER VIRUS (VZV), NAAT, LESION SWAB Lab Routine Vaginal burning Vaginal lesion 10/11/2024 8:23 AM EST [facility] Work Phone: Patient Education ED Sciatic[facility] Work Phone: Patient referral [facility] Work Phone: Payers Date Payer Category Payer Self-pay [id number] 2020 [employer] Blue [facility] BLUE CARD PPO OOS [id number] 2020 Unknown [employer] BLUE CARD PPO OOS [id number] 2020-Present [phone] [address] [place] [address] PPO [id number] 2020 Unknown [id number] Unknown [employer] [id number] Unknown [facility] [id number] Unknown [id number] Unknown [id number] Social History Date Type Detail Facility Start: 06-29-2022 End: 06-29-2022 Tobacco smoking status NHIS Unknown if ever smoked [facility] Start: 10-23-2019 Non-smoker [facility] Start: 1965 Sex Assigned At Female [facility] Start: 04-03-2024 Tobacco smoking stat us NHIS Never smoked tobacco [facility] Start: 04-03-2024 Tobacco use and exposure Smokeless tobacco non-user [facility] Start: 04-03-2024 End: 10-11-2024 Alcohol intake Current drinker of alcohol (finding) [facility] Start: 04-03-2024 End: 10-11-2024 History of Social function [facility] Start: 04-03-2024 End: 10-11-2024 Tobacco use panel [facility] Start: 04-03-2024 Alcohol Comment [facility] Start: 1965 Sex Assigned At Not on file C [facility] Clinical Notes 04-03-2024 to 04-04-2025 Telephone Encounter - Adriel Hassan RN - 12/08/2024 11:14 AM EDTTelephone Encounter - Adriel aHssan RN - 12/08/2024 11:14 AM EDTTelephone Encounter - Adriel Hassan RN - 10/12/2024 11:49 AM EST Note Date & Type Note Facility 04-04-2025 Note HNO ID: [id number] Author: KAI STRAUSS MD Service: ? Author Type: Physician Type: Progress Notes Filed: 04/04/2025 08:55 Note Text: Anneliese is a 59 year old who presents for an annual gynecologic exam without complaints. Postmenopausal: Yes since age 48 HRT use: No. Still get period: No LMP: postmenopausal Menopause symptoms: None Time with current partner: 5 years Number of lifetime partners: control frequency: Never HPV vaccine: No; Last pap smear: 04/14/2021 History of abnormal pap: Yes, history of abnormal PAP smears Bothersome pelvic pain: No Last mammogram: 2023 normal History of abnormal mammogram: No Recent HSV 1 outbreak OB History Gravida2 Para0 Term0 Preterm0 AB0 Living3 SAB0 IAB0 Ectopic0 Multiple1 Live Births0 Rehabilitation Caseworker History LMP: Postmenopausal Age at Menarche: 12 Age at First : Age at Menopause: Rehabilitation Caseworker History Comments: Sexual Activity: Yes; Male Contraception: No contraception data on record PAST MEDICAL HISTORY Diagnosis Date Degeneration of lumbar or lumbosacral intervertebral disc PAST SURGICAL HISTORY Procedure Laterality Date PAST SURGICAL HISTORY OF 2010 cardiac ablation FAMILY HISTORY Problem Relation Age of Onset Hypertension Mother Hypertension Father Seizures Brother No Known Problems Brother No Known Problems Maternal Grandmother No Known Problems Maternal Grandfather No Known Problems Paternal Grandmother No Known Problems Paternal Grandfather SOCIAL HISTORY Social History Tobacco Use Smoking status: Never Smokeless tobacco: Never Vaping Use Vaping status: Never Used Substance Use Topics Alcohol use: Yes Comment: occasional Drug use: Never REVIEW OF SYSTEMS Abdomen: No abdominal pain, nausea, vomiting, diarrhea, or constipation. No bloating, early satiety, indigestion, or increased flatulence. Bladder: No dysuria, gross hematuria, urinary frequency, urinary urgency, or incontinence Breast: No breast lumps, nipple d/c, overlying skin changes, redness or skin retraction Allergies and current medication updated:Yes SENSITIVE EXAM: The sensitive examination was discussed with the Patient or Patient's Authorized Plastic Welder. As applicable, any other physician, advance practice provider, medical student, or other health professional student that will be observing or involved in the sensitive examination for educational or training purposes was discussed with the Patient or Authorized Plastic Welder. The Patient or Authorized Plastic Welder has agreed to proceed with the sensitive examination. (Sensitive examination includes inspection and/or palpation of the breasts, pelvis, prostate and anorectal regions). EXAM: Ht 5' 5 (1.65m) Wt 122 lb (55.3kg) BMI 20.30 kg/(m2). GENERAL: pleasant, female in no apparent distress HEENT: Normocephalic, atraumatic, mucus membranes moist, and no lesions NECK: Supple, full range of motion, no adenopathy, and thyroid normal DERMATOLOGY: Normal, without lesions, non-icteric, and non-hirsute BREAST: soft, non-tender, symmetric, no dominant mass, normal nipple-areolar complex, no lymphadenopathy, and no nipple discharge CHEST: Normal inspiratory effort ABDOMEN: soft, non-tender, and no masses PELVIC: external genitalia normal, normal Bartholin's glands, urethra, Wassaic's glands, no vulvar lesions, no cervical lesions, good vaginal support, physiologic discharge present, normal appearing perineal body and perianal region BIMANUAL: uterus normal size, shape and consistency, no adnexal masses, and non-tender RECTOVAGINAL: rectovaginal exam negative for any masses or nodularity. NEURO: alert and oriented x3,exam grossly non-focal EXTREMITIES: normal ASSESSMENT/PLAN: 1) Health maintenance: Pap done with reflex HPV 2) Follow up one year or sooner as needed Kai Strauss MD [facility] 12-08-2024 Telephone encount er Note Pt last seen 10/11/24 by AT for vulvar blisters and sores- d/x Herpes Simplex vulvovaginitis. Pt asking for refill on Valtrex as she was on vacation and now has an outbreak-3 lesions at this time. Educational material mailed to Pt to Pt to further explain Herpes Simplex. Pt's questions answered re: reoccurrence of Herpes simplex. Adriel Hassan RN [facility] 12-08-2024 Miscellaneous Notes Formattin g of this note might be different from the original. Pt last seen 10/11/24 by AT for vulvar blisters and sores- d/x Herpes Simplex vulvovaginitis. Pt asking for refill on Valtrex as she was on vacation and now has an outbreak-3 lesions at this time. Educational material mailed to Pt to Pt to further explain Herpes Simplex. Pt's questions answered re: reoccurrence of Herpes simplex. Adriel Hassan RN documented in this encounter [facility] 10-12-2024 Telephone encount er Note Pt states she was notified by Dr. Strauss. Adriel Hassan RN [facility] 10-12-2024 Miscellaneous Notes Formattin g of this note might be different from the original. Pt states she was notified by Dr. Strauss. Adriel Hassan RN Kai Strauss MD to [facility] Ob-Rehabilitation Caseworker Pool High Priority 10/12/24 11:22 AM + Herpes culture Patient treated w Valtrex documented in this encounter [facility] 10-12-2024 Telephone encount er Note Kai Strauss MD to [facility] Ob-Rehabilitation Caseworker Pool High Priority 10/12/24 11:22 AM + Herpes culture Patient treated w Valtrex [facility] 10-11-2024 Note HNO ID: [id number] Author: KAI STRAUSS MD Service: ? Author Type: Physician Type: Progress Notes Filed: 10/11/2024 08:45 Note Text: Credit Control Administrator offered: Patient accepts, visit chaperoned by Destini/TRISH. Anneliese Delcid is a 59 year old female who presents for problem visit c/o sores and blisters on the vulva and between the breasts days after sexual contact with partner with cold sores.. HPI: as above OB History Gravida2 Para0 Term0 Preterm0 AB0 Living3 SAB0 IAB0 Ectopic0 Multiple1 Live Births0 Rehabilitation Caseworker History LMP: Postmenopausal Age at Menarche: Age at First : Age at Menopause: Rehabilitation Caseworker History Comments: Sexual Activity: Yes; Male Contraception: No contraception data on record No past medical history on file. PAST SURGICAL HISTORY Procedure Laterality Date PAST SURGICAL HISTORY OF 2010 cardiac ablation FAMILY HISTORY Problem Relation Age of Onset Hypertension Mother Hypertension Father Seizures Brother No Known Problems Brother No Known Problems Maternal Grandmother No Known Problems Maternal Grandfather No Known Problems Paternal Grandmother No Known Problems Paternal Grandfather Social History Tobacco Use Smoking status: Never Smokeless tobacco: Never Vaping Use Vaping status: Never Used Substance Use Topics Alcohol use: Yes Comment: occasional Drug use: Never Current Outpatient Medications Medication Sig gabapentin (NEURONTIN) 300 mg capsule Take 300 mg by mouth two times a day. No current facility-administered medications for this visit. Allergies As of Date: 10/11/2024 (No Known Allergies) Fully Assessed 04/03/2024 REVIEW OF SYSTEMS Abdomen: No bloating, early satiety, indigestion, or increased flatulence. No abdominal pain, nausea, vomiting, diarrhea, or constipation. Bladder: No dysuria, gross hematuria, urinary frequency, urinary urgency, or incontinence. Breast: No breast lumps, nipple d/c, overlying skin changes, redness or skin retraction. Expanded ROS: N/A Allergies and current medication updated:Yes SENSITIVE EXAM: The sensitive examination was discussed with the Patient or Patient's Authorized Plastic Welder. As applicable, any other physician, advance practice provider, medical student, or other health professional student that will be observing or involved in the sensitive examination for educational or training purposes was discussed with the Patient or Authorized Plastic Welder. The Patient or Authorized Plastic Welder has agreed to proceed with the sensitive examination. (Sensitive examination includes inspection and/or palpation of the breasts, pelvis, prostate and anorectal regions). EXAM: There were no vitals taken for this visit. GENERAL: pleasant, female in no apparent distress PELVIC: vulvar blisters and sores BIMANUAL: deferred ASSESSMENT AND PLAN: Assessment AND Plan Vaginal burning Vaginal lesion Orders: HERPES SIMPLEX VIRUS (HSV-1 AND HSV-2) AND VARICELLA ZOSTER VIRUS (VZV), NAAT, LESION SWAB Herpes simplex vulvovaginitis tx valtrex ftft> 30 min Kai Strauss MD [facility] 10-11-2024 History of Presen t illness Narrative Credit Control Administrator offered: Patient accepts, visit chaperoned by Destini/TRISH. Anneliese Delcid is a 59 year old female who presents for problem visit c/o sores and blisters on the vulva and between the breasts days after sexual contact with partner with cold sores.. HPI: as above OB History Gravida2 Para0 Term0 Preterm0 AB0 Living3 SAB0 IAB0 Ectopic0 Multiple1 Live Births0 Rehabilitation Caseworker History LMP: Postmenopausal Age at Menarche: Age at First : Age at Menopause: Rehabilitation Caseworker History Comments: Sexual Activity: Yes; Male Contraception: No contraception data on record No past medical history on file. PAST SURGICAL HISTORY Procedure Laterality Date PAST SURGICAL HISTORY OF 2010 cardiac ablation FAMILY HISTORY Problem Relation Age of Onset Hypertension Mother Hypertension Father Seizures Brother No Known Problems Brother No Known Problems Maternal Grandmother No Known Problems Maternal Grandfather No Known Problems Paternal Grandmother No Known Problems Paternal Grandfather Social History Tobacco Use Smoking status: Never Smokeless tobacco: Never Vaping Use Vaping status: Never Used Substance Use Topics Alcohol use: Yes Comment: occasional Drug use: Never Current Outpatient Medications Medication Sig gabapentin (NEURONTIN) 300 mg capsule Take 300 mg by mouth two times a day. No current facility-administered medications for this visit. Allergies As of Date: 10/11/2024 (No Known Allergies) Fully Assessed 04/03/2024 REVIEW OF SYSTEMS Abdomen: No bloating, early satiety, indigestion, or increased flatulence. No abdominal pain, nausea, vomiting, diarrhea, or constipation. Bladder: No dysuria, gross hematuria, urinary frequency, urinary urgency, or incontinence. Breast: No breast lumps, nipple d/c, overlying skin changes, redness or skin retraction. Expanded ROS: N/A Allergies and current medication updated:Yes SENSITIVE EXAM: The sensitive examination was discussed with the Patient or Patient's Authorized Plastic Welder. As applicable, any other physician, advance practice provider, medical student, or other health professional student that will be observing or involved in the sensitive examination for educational or training purposes was discussed with the Patient or Authorized Plastic Welder. The Patient or Authorized Plastic Welder has agreed to proceed with the sensitive examination. (Sensitive examination includes inspection and/or palpation of the breasts, pelvis, prostate and anorectal regions). EXAM: There were no vitals taken for this visit. GENERAL: pleasant, female in no apparent distress PELVIC: vulvar blisters and sores BIMANUAL: deferred ASSESSMENT AND PLAN: Assessment & Plan Vaginal burning Vaginal lesion Orders: HERPES SIMPLEX VIRUS (HSV-1 & HSV-2) AND VARICELLA ZOSTER VIRUS (VZV), NAAT, LESION SWAB Herpes simplex vulvovaginitis tx valtrex ftft> 30 min Kai Strauss MD documented in this encounter [facility] 04-03-2024 History of Presen t illness Narrative Credit Control Administrator offered: Patient accepts, visit chaperoned by nurse. Anneliese is a 58 year old No obstetric history on file. who presents for an annual gynecologic exam without complaints. Postmenopausal: Yes since age 48 HRT use: No. Last Pap: normal HPV: negative History of abnormal pap: Yes LEEP 2008 and normal since Last mammogram: 2020 normal History of abnormal mammogram: No Sexually active: Yes History of STDS: None Patient concerns for STD exposure: No. Time with current partner: 3 years OB History No obstetric history on file. Rehabilitation Caseworker History LMP: Postmenopausal Age at Menarche: Age at First : Age at Menopause: Rehabilitation Caseworker History Comments: Sexual Activity: Yes; Male Contraception: No contraception data on record History reviewed. No pertinent past medical history.PAST SURGICAL HISTORY 2010: PAST SURGICAL HISTORY OF Comment: cardiac ablation FAMILY HISTORY Problem Relation Age of Onset Hypertension Mother Hypertension Father Seizures Brother No Known Problems Brother No Known Problems Maternal Grandmother No Known Problems Maternal Grandfather No Known Problems Paternal Grandmother No Known Problems Paternal Grandfather SOCIAL HISTORY Social History Tobacco Use Smoking status: Never Smokeless tobacco: Never Vaping Use Vaping Use: Never used Substance Use Topics Alcohol use: Yes Comment: occasional Drug use: Never REVIEW OF SYSTEMS Abdomen: No abdominal pain, nausea, vomiting, diarrhea, or constipation. No bloating, early satiety, indigestion, or increased flatulence. Bladder: No dysuria, gross hematuria, urinary frequency, urinary urgency, or incontinence Breast: No breast lumps, nipple d/c, overlying skin changes, redness or skin retraction Allergies and current medication updated:Yes EXAM: BP 100/60 Ht 5' 2.5 (1.59m) Wt 122 lb 3.2 oz (55.4kg) BMI 21.98 kg/(m^2). GENERAL: pleasant, female in no apparent distress HEENT: Normocephalic, atraumatic, mucus membranes moist, and no lesions NECK: Supple, full range of motion, no adenopathy, and thyroid normal DERMATOLOGY: Normal, without lesions, non-icteric, and non-hirsute BREAST: soft, non-tender, symmetric, no dominant mass, normal nipple-areolar complex, no lymphadenopathy, and no nipple discharge CHEST: Normal inspiratory effort ABDOMEN: soft, non-tender, and no masses PELVIC: external genitalia normal, normal Bartholin's glands, urethra, Wassaic's glands, no vulvar lesions, no cervical lesions, good vaginal support, physiologic discharge present, normal appearing perineal body and perianal region BIMANUAL: uterus normal size, shape and consistency, no adnexal masses, and non-tender RECTOVAGINAL: rectovaginal exam negative for any masses or nodularity. NEURO: alert and oriented x3,exam grossly non-focal EXTREMITIES: normal ASSESSMENT/PLAN: 1) Health maintenance: Mammogram ordered 2) Follow up one year or sooner as needed Kai Strauss MD documented in this encounter [facility] Evaluation note Diagnosis Onset Date Sciatica of left side acute [facility] Work Phone: Evaluation noteNo assessment information available [facility] Work Phone: Evaluation note* Diagnosis Encounter for gynecological examination (general) (routine) without abnormal findings- Primary Encounter for screening mammogram for breast cancer [facility] Diagnosis Vaginal burning Other specified symptom associated with female genital organs Vaginal lesion Other specified noninflammatory disorder of vagina Herpes simplex vulvovaginitis [facility] Diagnostic Procedure Only (Routine) - New Request Specialty Diagnoses / Procedures Referred By Shashank t Referred To Contact [facility] Diagnoses Encounter for screening mammogram for breast cancer Procedures IRON SCREENING W RAVINDER SCREENING DIGITAL BREAST TOMOSYNTHESIS BI SCREENING MAMMOGRAPHY BI 2-VIEW BREAST INC Kai Bronson MD [address] [facility] [facility] [place] [address] [facility] [address] [place] [address] Referral ID Status Reason Start Date Expiration Date Visits Requested Visits Authorized [id number] New Request Auto-Generat ed Referral 04/03/2024 05/03/2025 1 1 [facility] Chief Complaint and Reason for Visit Chief Complaint LEFT HIP/LEG PAIN hip pain Reason for Visit Sciatica of left bill e Chief Complaint LEFT HIP/LEG PAIN hip pain influenza virus Reason for Visit Sciatica of left bill e Chief Complaint SCREENING Advance Directives No Advanced Directives Records Found Advance Directive Response Recorded Date/ Time Living Will No June 29 8:39am Power of Slab Grinder No June 29, 2022 8:39am Advance Directive Response Recorded Date/ Time Living Will No June 29 9:39am Power of Slab Grinder No June 29, 2022 9:39am Summary Purpose Family History No Family History Records Found Additional Source Comments Goals (unrecognized section and content) Goals may be documented in a n alternate sectionGoals may be documented in an alternate sectionGoals may be documented in an alternate section Care Teams (unrecognized sec tion and content) Team Status: Active Member Role Status Dates Dr. Andreina Trevino MD Family Provider Active Dr. Andreina Trevino MD Primary Care Provider Active Team Status: Inactive Member Role Status Dates Dr. Andreina Trevino MD Primary Care Provider Active Dr. Jm Rhodes MD Attending Provider, Referring Pr rachel Active Sustainable Communities Designer Relationship Specialty Start Date End Date Andreina Trevino [address] [facility] [address] [place] [address] PCP - General Family Medicine 04/03/24 Sustainable Communities Designer Relationship Specialty Start Date End Date Kodi Saenz MD [address] [facility] [address] [place] [address] PCP - General Family Medicine 10/11/24 Sustainable Communities Designer Relationship Specialty Start Date End Date Kodi Saenz MD [address] [facility] [address] [place] [address] PCP - General Family Medicine 10/11/24 Sustainable Communities Designer Relationship Specialty Start Date End Date Kodi Saenz MD [address] [facility] [address] [place] [address] PCP - General Family Medicine 10/11/24 Sustainable Communities Designer Relationship Specialty Start Date End Date Kodi Saenz MD [address] [facility] [address] [place] [address] PCP - General Family Medicine 10/11/24 Source Comments (unrecognize d section and content) In the event this informatio n is protected by the Federal Confidentiality of Alcohol and Drug Abuse Patient Records regulations: The Federal rules restrict any use of the information to criminally investigate or prosecute any alcohol or drug abuse patient.[facility] the event this information is protected by the Federal Confidentiality of Alcohol and Drug Abuse Patient Records regulations: The Federal rules restrict any use of the information to criminally investigate or prosecute any alcohol or drug abuse patient.[facility] System[facility] the event this information is protected by the Federal Confidentiality of Alcohol and Drug Abuse Patient Records regulations: The Federal rules restrict any use of the information to criminally investigate or prosecute any alcohol or drug abuse patient.[facility] System[facility] the event this information is protected by the Federal Confidentiality of Alcohol and Drug Abuse Patient Records regulations: The Federal rules restrict any use of the information to criminally investigate or prosecute any alcohol or drug abuse patient.[facility] System[facility] the event this information is protected by the Federal Confidentiality of Alcohol and Drug Abuse Patient Records regulations: The Federal rules restrict any use of the information to criminally investigate or prosecute any alcohol or drug abuse patient.[facility] Reason for Visit (unrecogniz ed section and content) Reason Comments Well Woman Reason Comments Vaginal Problem Reason Comments Results Reason Comments Refill Request INFORMATION SOURCE (unrecogn ized section and content) DATE CREATED AUTHOR 04/08/2025 [facility] DATE CREATED AUTHOR AUTHOR'S NANCY СВЕТЛАНАDWIGHT 04/26/2025 [facility] FOR RECORDS PERTAINING TO PATIENTS WHO ARE OR HAVE BEEN ENROLLED IN A CHEMICAL DEPENDENCY/SUBSTANCEABUSE PROGRAM, SOME INFORMATION MAY BE OMITTED. This clinical summary was aggregated from multiple sources. Caution should be exercised in using it in the provision of clinical care. This summary normalizes information from multiple sources, and as a consequence, information in this document may materially change the coding, format and clinical context of patient data. In addition, data may be omitted in some cases. CLINICAL DECISIONS SHOULD BE BASED ON THE PRIMARY CLINICAL RECORDS. [facility] [employer] [facility]. provides no warranty or guarantee of the accuracy or completeness of information in this document.
== END | disposition home or self-care (01) ==
LOC: OPBI 16:21
PROVIDERS: PCP Family Medicine
DX: Z12.31 Encounter for screening mammogram for malignant neoplasm of breast (principal)
CPT/HCPCS: 77063; 77067